=== PATIENT | female | born 1975 | race Caucasian/White ===

== ENCOUNTER 2018-03-07 16:00 | Emergency (ER) | payer BC, SELFPAY ==
[2018-03-07 16:43] VITALS: BP 117/70; PULSE 73; RESP 16; TEMP 37; O2SAT 96
--- NOTE | 2018-03-07 16:55 | W.ED.GENAD ---
Discharge Plan Disposition Patient Disposition: HOME Condition: Fair Discharge Details Chief Complaint: Abd Prob Clinical Impression: Abdominal pain Primary Care Provider: Lonnie Vanegas ED Provider: Cynthia Espinal Home Meds and New Rx's Prescriptions: Continued CENTRUM TABLET 1 EACH tablet 1 tab PO DAILY RF: 0 Probiotic 1 EACH capsule 1 ea PO DAILY RF: 0 Discharge Instructions Instructions: Abdominal Pain (ED) Additional Instructions: Encourage hydration. Tylenol and/or ibuprofen as needed for discomfort. Please follow-up with primary care for reevaluation of your recurrent abdominal pain. We have placed an order for an outpatient ultrasound for further evaluation of your gallbladder, please follow-up with primary care after imaging has been completed. If you develop vomiting, inability to stay hydrated, increased pain, fevers or chills or other new/worsening symptoms please seek care urgently once again Referrals: Lonnie Vanegas [Primary Care Provider] - Medical Decision Making Patient 43-year-old female presenting today with chief complaint of right-sided abdominal pain. She reports the pain began yesterday and has progressively been increasing. States that initially, the pain was in the right lower quadrant but has since migrated more superiorly today. Patient reports the pain does remain quite focal. She denies any fevers or chills. Denies any nausea or vomiting but does endorse a low appetite over the past 24 hours. Denies any change in urinary or bowel habits. Denies any pain radiating into her back. Denies any chest pain or shortness of breath. Denies any recent illness. Is not taking anything as of yet for her discomfort. Surgical history significant for 2 C-sections. Patient does have history of PCO S. She was initially concerned that she may have had ovarian cyst but states the pain is atypical from a previous cyst. Last finished most recent menses 4 days ago. Has had pain previously, was last seen for this 1 year. Has not noted any change in her discomfort associated with p.o. intake On exam, patient patient's pain is maximal in the right upper quadrant with positive Morales sign. No pain over McBurney's point. No CVA tenderness. No rebound tenderness, guarding or peritoneal findings. Patient appears nontoxic and is moving well. Vital signs within normal limit. We will obtain laboratory evaluation and CT scan. While the pain is located in the area most consistent with gallbladder, muscle concern for appendicitis given the location of the initial discomfort in her low appetite. Her lack of change in appetite associated p.o. intake also makes cholecystitis less likely COMPARISON: CT ABD PELVIS WITH CONTRAST 12/23/2016 6:24 PM FINDINGS: Lower thorax: No acute findings. ABDOMEN: Liver: Normal. No mass. Gallbladder and bile ducts: Normal. No calcified stones. No ductal dilation. Pancreas: Normal. No ductal dilation. Spleen: Normal. No splenomegaly. Adrenals: Normal. No mass. Kidneys and ureters: Normal. No hydronephrosis. Stomach and bowel: Normal. No obstruction. No mucosal thickening. Appendix: Normal appendix. PELVIS: Bladder: Unremarkable as visualized. Reproductive: Unremarkable as visualized. ABDOMEN and PELVIS: Intraperitoneal space: Normal. No free air. No significant fluid collection. Bones/joints: No acute fracture. No dislocation. Soft tissues: Unremarkable. Vasculature: Normal. No abdominal aortic aneurysm. Lymph nodes: Normal. No enlarged lymph nodes. IMPRESSION: No acute findings. Labs without acute abnormality. Discussed findings with the patient. Advised that no acute pathology is identified at this time. As pain is in the RUQ, will also order outpatient US for further eval of the GB. Encouraged hdyration. Advised close f/u with PCP. She is declining pain medication at this time. Discussed new/worseing symptoms and when to seek care urgently once again. All of her questions and concerns were addressed, she is in agreementi with this plan. HPI General Mode of arrival: ambulatory. Date/Time Provider Initiated Documentation: 03/07/18 16:54. Limitations to Documentation: no limitations. Information obtained by: patient. History of Present Illness 43 year old F presents to the emergency department with the chief complaint of abdominal pain, described as moderate, with intensity rated at 7. Quality is described as aching, and is localized to the abdomen. Patient reports no radiation. Patient started experiencing this day(s) (1) and it has been constant. No relieving factors improve symptom(s), No exacerbating factors reported . Patient notes loss of appetite; denies chest pain, cough, fever/chills, nausea/vomiting, rash and shortness of breath. Patient did receive the following treatments prior to arrival, none Related Data Home Medications Medication Instructions Recorded Confirmed Centrum Tablet 1 tab PO DAILY 05/30/12 03/07/18 Probiotic 1 ea PO DAILY 08/21/13 03/07/18 Allergies Allergy/AdvReac Type Severity Reaction Status Date / Time No Known Drug Allergies Allergy Unverified 03/07/18 16:46 General Stated Complaint: Abd Prob AGNES: 3 Review of Systems Constitutional Reports as per HPI, Denies chills, Denies fatigue, Denies fever(s) and Denies headache(s) ENT Denies headache(s) Cardiovascular Reports as per HPI, Denies chest pain and Denies dyspnea Respiratory Reports as per HPI, Denies cough and Denies dyspnea Gastrointestinal Reports as per HPI, Reports abdominal pain, Denies melena, Denies change in stool character, Denies nausea and Denies vomiting Genitourinary Denies system reviewed and no additional complaints, except as docu (denies change in urinary habits) Musculoskeletal Reports as per HPI and Denies back pain Integumentary/Breasts Reports as per HPI and Denies rash Neurologic Denies headache(s) Endocrine Denies fatigue [facility] Medical History PCOS (polycystic ovarian syndrome) Surgical History Arthroplasty of knee Biopsy of breast section Family History Sister Polycystic ovaries Mother Hypertensive disorder, systemic arterial Diabetes Hyperlipidemia Father Diabetes Social History Smoking/Tobacco Use Status: Never Exam Const General: cooperative, healthy appearing, comfortable, no acute distress and well developed Nutritional Appearance: average body habitus and well nourished Orientation: alert and awake HENMT Head: normal to inspection Mouth: moist mucous membranes Resp Effort & Inspection: normal respiratory effort, able to speak in complete sentences and no respiratory distress Auscultation: clear to auscultation bilaterally, no rales, no rhonchi and no wheezes Cardio Rate: regular rate Rhythm: regular rhythm Heart Sounds: S1 normal and S2 normal GI Inspection: normal to inspection, non-distended and no large pannus Palpation: soft, no hepatosplenomegaly, not firm, no guarding and tender in the RUQ and Morales's sign positive; not at McBurney's point, obturator sign negative, psoas sign negative and with no rebound tenderness Percussion: normal to percussion Auscultation: normal bowel sounds Back/Spine/Pelvis Back: no CVA tenderness Skin General skin exam: no rashes or lesions noted Trauma: no lacerations or abrasions Neuro General: alert and awake Cognition: normal cognition Speech: speech normal Gait: normal gait Psych Appearance: grossly normal and well kempt Mental Status: mental status grossly normal Speech and Movement: speech and movement normal Course Vital Signs Temperature 37 C 03/07/18 16:43 Pulse 73 03/07/18 16:43 Respiratory Rate 16 03/07/18 16:43 Blood Pressure 117/70 03/07/18 16:43 Pulse Oximetry 96 03/07/18 16:43 Temperature 37 C 03/07/18 16:43 Temperature Source Skin 03/07/18 16:43 Pulse 73 03/07/18 16:43 Respiratory Rate 16 03/07/18 16:43 Respiratory Effort Non-Labored 03/07/18 16:43 Blood Pressure 117/70 03/07/18 16:43 Blood Pressure Position Sitting 03/07/18 16:43 Pulse Oximetry 96 03/07/18 16:43 Oxygen Delivery Method Room Air 03/07/18 16:43 Oxygen Flow Rate 0 03/07/18 16:43 Pain Level 7 03/07/18 16:43
--- NOTE | 2018-03-07 17:30 | DI.CT_ITS ---
SYMPTOM/DIAGNOSIS: RLQ PAIN ABDOMEN AND PELVIC CT: CT scan of the abdomen and pelvis was performed following the uneventful administration of intravenous contrast material. Comparison examination is 12/23/16. No acute findings are seen in the lung bases. The liver is normal in size. No suspicious hepatic masses are seen. The portal and superior mesenteric veins are patent. The gallbladder is negative. No biliary ductal dilatation is identified. The pancreas, spleen and adrenal glands are unremarkable. The kidneys show normal and symmetric enhancement. No evidence of a solid renal mass or obstruction. The urinary bladder is intact. The reproductive organs are grossly unremarkable. The abdominal aorta is of normal caliber. No aneurysmal dilatation is seen. No significant abdominal or pelvic adenopathy, ascites or pneumoperitoneum is present. The bowel shows no evidence of obstruction or inflammation. No findings to suggest an acute appendicitis are present. A normal appendix is seen in the right lower quadrant. Mild degenerative changes are seen in the lower thoracic spine. IMPRESSION: No evidence of an acute abdomen.
--- NOTE | 2018-03-07 17:34 | ED.GENADUL_ITS ---
Discharge Plan Disposition Patient Disposition: HOME Condition: Fair Discharge Details Chief Complaint: Abd Prob Clinical Impression: Abdominal pain Primary Care Provider: Lonnie Vanegas ED Provider: Cynthia Espinal Home Meds and New Rx's Prescriptions: Continued CENTRUM TABLET 1 EACH tablet 1 tab PO DAILY RF: 0 Probiotic 1 EACH capsule 1 ea PO DAILY RF: 0 Discharge Instructions Instructions: Abdominal Pain (ED) Additional Instructions: Encourage hydration. Tylenol and/or ibuprofen as needed for discomfort. Please follow-up with primary care for reevaluation of your recurrent abdominal pain. We have placed an order for an outpatient ultrasound for further evaluation of your gallbladder, please follow-up with primary care after imaging has been completed. If you develop vomiting, inability to stay hydrated, increased pain, fevers or chills or other new/worsening symptoms please seek care urgently once again Referrals: Lonnie Vanegas [Primary Care Provider] - Medical Decision Making Patient 43-year-old female presenting today with chief complaint of right-sided abdominal pain. She reports the pain began yesterday and has progressively been increasing. States that initially, the pain was in the right lower quadrant but has since migrated more superiorly today. Patient reports the pain does remain quite focal. She denies any fevers or chills. Denies any nausea or vomiting but does endorse a low appetite over the past 24 hours. Denies any change in ur inary or bowel habits. Denies any pain radiating into her back. Denies any chest pain or shortness of breath. Denies any recent illness. Is not taking anything as of yet for her discomfort. Surgical history significant for 2 C- sections. Patient does have history of PCO S. She was initially concerned that she may have had ovarian cyst but states the pain is atypical from a previous cyst. Last finished most recent menses 4 days ago. Has had pain previously, was last seen for this 1 year. Has not noted any change in her discomfort associated with p.o. intake On exam, patient patient's pain is maximal in the right upper quadrant with positive Morales sign. No pain over McBurney's point. No CVA tenderness. No rebound tenderness, guarding or peritoneal findings. Patient appears nontoxic and is moving well. Vital signs within normal limit. We will obtain laboratory evaluation and CT scan. While the pain is located in the area most consistent with gallbladder, muscle concern for appendicitis given the location of the initial discomfort in her low appetite. Her lack of change in appetite associated p.o. intake also makes cholecystitis less likely COMPARISON: CT ABD PELVIS WITH CONTRAST 12/23/2016 6:24 PM FINDINGS: Lower thorax: No acute findings. ABDOMEN: Liver: Normal. No mass. Gallbladder and bile ducts: Normal. No calcified stones. No ductal dilation. Pancreas: Normal. No ductal dilation. Spleen: Normal. No splenomegaly. Adrenals: Normal. No mass. Kidneys and ureters: Normal. No hydronephrosis. Stomach and bowel: Normal. No obstruction. No mucosal thickening. Appendix: Normal appendix. PELVIS: Bladder: Unremarkable as visualized. Reproductive: Unremarkable as visualized. ABDOMEN and PELVIS: Intraperitoneal space: Normal. No free air. No significant fluid collection. Bones/joints: No acute fracture. No dislocation. Soft tissues: Unremarkable. Vasculature: Normal. No abdominal aortic aneurysm. Lymph nodes: Normal. No enlarged lymph nodes. IMPRESSION: No acute findings. Labs without acute abnormality. Discussed findings with the patient. Advised that no acute pathology is identified at this time. As pain is in the RUQ, will also order outpatient US for further eval of the GB. Encouraged hdyration. Advised close f/u with PCP. She is declining pain medication at this time. Discussed new/worseing symptoms and when to seek care urgently once again. All of her questions and concerns were addressed, she is in agreementi with this plan. HPI General Mode of arrival: ambulatory . Date/Time Provider Initiated Documentation: 03/07/18 16:54 . Limitations to Documentation: no limitations . Information obtained by: patient . History of Present Illness 43 year old F presents to the emergency department with the chief complaint of abdominal pain, described as moderate, with intensity rated at 7. Quality is described as aching, and is localized to the abdomen. Patient reports no radiation. Patient started experiencing this day(s) (1) and it has been constant. No relieving factors improve symptom(s), No exacerbating factors reported . Patient notes loss of appetite; denies chest pain, cough, fever/chills, nausea/vomiting, rash and shortness of breath. Patient did receive the following treatments prior to arrival, none Related Data Home Medications Medication Instructions Recorded Confirmed Centrum Tablet 1 tab PO DAILY 05/30/12 03/07/18 Probiotic 1 ea PO DAILY 08/21/13 03/07/18 Allergies Allergy/AdvReac Type Severity Reaction Status Date / Time No Known Drug Allergies Allergy Unverified 03/07/18 16:46 General Stated Complaint: Abd Prob AGNES: 3 Review of Systems Constitutional Reports as per HPI, Denies chills, Denies fatigue, Denies fever(s) and Denies headache(s) ENT Denies headache(s) Cardiovascular Reports as per HPI, Denies chest pain and Denies dyspnea Respiratory Reports as per HPI, Denies cough and Denies dyspnea Gastrointestinal Reports as per HPI, Reports abdominal pain, Denies melena, Denies change in stool character, Denies nausea and Denies vomiting Genitourinary Denies system reviewed and no additional complaints, except as docu (denies change in urinary habits) Musculoskeletal Reports as per HPI and Denies back pain Integumentary/Breasts Reports as per HPI and Denies rash Neurologic Denies headache(s) Endocrine Denies fatigue PFSH Medical History PCOS (polycystic ovarian syndrome) Surgical History Arthroplasty of knee Biopsy of breast section Family History Sister Polycystic ovaries Mother Hypertensive disorder, systemic arterial Diabetes Hyperlipidemia Father Diabetes Social History Smoking/Tobacco Use Status: Never Exam Const General: cooperative, healthy appearing, comfortable, no acute distress and well developed Nutritional Appearance: average body habitus and well nourished Orientation: alert and awake HENMT Head: normal to inspection Mouth: moist mucous membranes Resp Effort & Inspection: normal respiratory effort, able to speak in complete sentences and no respiratory distress Auscultation: clear to auscultation bilaterally, no rales, no rhonchi and no wheezes Cardio Rate: regular rate Rhythm: regular rhythm Heart Sounds: S1 normal and S2 normal GI Inspection: normal to inspection, non-distended and no large pannus Palpation: soft, no hepatosplenomegaly, not firm, no guarding and tender in the RUQ and Morales's sign positive; not at McBurney's point, obturator sign negative, psoas sign negative and with no rebound tenderness Percussion: normal to percussion Auscultation: normal bowel sounds Back/Spine/Pelvis Back: no CVA tenderness Skin General skin exam: no rashes or lesions noted Trauma: no lacerations or abrasions Neuro General: alert and awake Cognition: normal cognition Speech: speech normal Gait: normal gait Psych Appearance: grossly normal and well kempt Mental Status: mental status grossly normal Speech and Movement: speech and movement normal Course Vital Signs Temperature 37 C 03/07/18 16:43 Pulse 73 03/07/18 16:43 Respiratory Rate 16 03/07/18 16:43 Blood Pressure 117/70 03/07/18 16:43 Pulse Oximetry 96 03/07/18 16:43 Temperature 37 C 03/07/18 16:43 Temperature Source Skin 03/07/18 16:43 Pulse 73 03/07/18 16:43 Respiratory Rate 16 03/07/18 16:43 Respiratory Effort Non-Labored 03/07/18 16:43 Blood Pressure 117/70 03/07/18 16:43 Blood Pressure Position Sitting 03/07/18 16:43 Pulse Oximetry 96 03/07/18 16:43 Oxygen Delivery Method Room Air 03/07/18 16:43 Oxygen Flow Rate 0 03/07/18 16:43 Pain Level 7 03/07/18 16:43
[2018-03-07 17:50] LABS: Bilirubin Negative (Negative); Blood Negative (Negative); Clarity Clear; Glucose Negative (Negative); Ketones Negative (Negative); Leukocyte Esterase Negative (Negative); Nitrite Negative (Negative); Urobilinogen 0.2 EU/dL (Up TO 0.2)
[2018-03-07] MEDS: Lactated Ringers 1,000 ML 1000 ML IV (17:55)
[2018-03-07 18:08] LABS: Abs Immature Grans 0.04 k/cumm (0.0-0.09); Absolute Basophil Count 0.04 k/cumm (0.0-0.2); Absolute Eosinophil Count 0.58 k/cumm (0.0-0.7); Absolute Lymphocyte Count 2.81 k/cumm (1.2-3.4); Absolute Monocyte Count 0.83 k/cumm (0.11-0.7); Absolute Neutrophil Count 5.64 k/cumm (1.2-6.7); Basophils % 0.4; Eosinophils % 5.8; HCT 38.7 % (36.0-46.0); HGB 13.1 g/dL (12.0-15.5); Immature Grans % 0.4; Lymphocytes % 28.3; Mean Corp. HGB Concentration 33.9 g/dL (32.0-36.0); Mean Corpuscular Hemoglobin 30.8 pg (27.0-33.0); Mean Corpuscular Volume 91.1 fL (80-95); Mean Platelet Volume 9.2 fL (8.0-11.0); Monocytes % 8.4; Neutrophils % 56.7; Platelet Count 306 x1000/uL (130-400); RBC 4.25 m/cumm (4.00-5.20); RBC Distribution Width 14.5 % (11.7-14.6); White Blood Cell Count 9.94 k/cumm (4.4-10.8)
[2018-03-07] MEDS: Omnipaque 350 MG/ML 100 ML BTL IJ (18:23)
[2018-03-07 18:25] LABS: ALT 26 U/L (12-78); AST 19 U/L (15-37); Albumin 3.4 g/dL (3.4-5.0); Alkaline Phosphatase 56 U/L (46-116); Anion Gap 7.8 mmol/L (3-11); BUN 11 mg/dL (7-18); Bilirubin, Total 0.1 mg/dL (0.2-1.0); CO2 29.2 mmol/L (21.0-32.0); CREATININE 0.89 mg/dL (0.55-1.02); Chloride 104 mmol/L (98-107); Glucose 86 mg/dL (70-100); Lipase 191 U/L (73-393); Potassium 3.9 mmol/L (3.5-5.1); Sodium 141 mmol/L (136-145); Total Protein 7.5 g/dL (6.4-8.2)
[2018-03-07 18:27] LABS: Troponin I < 0.02 ng/mL (0.00-0.06)
--- NOTE | 2018-03-07 18:54 | DI.VRAD_ITS ---
EXAM: CT Abdomen and Pelvis With Contrast EXAM DATE/TIME: 03/07/2018 5:31 PM CLINICAL HISTORY: 43 years old, female; Pain; Abdominal pain; Patient HX: Rlq pain TECHNIQUE: Axial computed tomography images of the abdomen and pelvis with intravenous contrast. Coronal and sagittal reformatted images were created and reviewed. COMPARISON: CT ABD PELVIS WITH CONTRAST 12/23/2016 6:24 PM FINDINGS: Lower thorax: No acute findings. ABDOMEN: Liver: Normal. No mass. Gallbladder and bile ducts: Normal. No calcified stones. No ductal dilation. Pancreas: Normal. No ductal dilation. Spleen: Normal. No splenomegaly. Adrenals: Normal. No mass. Kidneys and ureters: Normal. No hydronephrosis. Stomach and bowel: Normal. No obstruction. No mucosal thickening. Appendix: Normal appendix. PELVIS: Bladder: Unremarkable as visualized. Reproductive: Unremarkable as visualized. ABDOMEN and PELVIS: Intraperitoneal space: Normal. No free air. No significant fluid collection. Bones/joints: No acute fracture. No dislocation. Soft tissues: Unremarkable. Vasculature: Normal. No abdominal aortic aneurysm. Lymph nodes: Normal. No enlarged lymph nodes. IMPRESSION: No acute findings. Dictated and Authenticated by: Rhett Guidry MD. Ordering:STACI Marie MD
[2018-03-07 20:17] VITALS: BP 117/70; PULSE 73; RESP 16; TEMP 37; O2SAT 96
== END 2018-03-07 19:30 | disposition home or self-care (01) ==
PROVIDERS: Emergency Provider Physician Assistant; PCP Family Medicine
DX: R10.11 Right upper quadrant pain (principal)
CPT/HCPCS: 36415; 80053; 81025; 83690; 96361; 99285; 74177; 81003; 83735; 84484; 85025; 99284; J3490

== ENCOUNTER 2018-03-18 00:20 | Outpatient (CLI) | payer BC, SELFPAY ==
--- NOTE | 2018-03-18 10:00 | DI.US_ITS ---
SYMPTOM/DIAGNOSIS: RUQ PAIN ABDOMEN ULTRASOUND: Routine examination was performed. Comparison is made with 12/23/16. Comparison CT scan is 03/07/18. The aorta and IVC are unremarkable. The liver, gallbladder, bile ducts, pancreas, kidneys and spleen are unremarkable. The right lower quadrant was evaluated sonographically and is unremarkable. IMPRESSION: Negative abdomen ultrasound.
== END 2018-03-18 00:40 ==
PROVIDERS: PCP Family Medicine; Visit Provider Physician Assistant
DX: R10.11 Right upper quadrant pain (principal)
CPT/HCPCS: 76700

== ENCOUNTER 2018-04-07 00:40 | Outpatient (CLI) | payer BC, SELFPAY ==
--- NOTE | 2018-04-07 08:24 | DI.NM_ITS ---
SYMPTOMS/DIAGNOSIS: RECURRENT RIGHT UPPER QUADRANT PAIN X 4 WEEKS, NEGATIVE CT/US HEPATOBILIARY SCAN: Hepatobiliary scan was performed according to the usual protocol. 4.7 mCi of technetium 99 labelled mebrofenin was injected intravenously. There is a prompt homogeneous hepatic uptake and there is prompt uptake in the gallbladder, bile ducts and small intestine. CONCLUSION: Negative hepatobiliary scan.
== END 2018-04-07 01:00 ==
PROVIDERS: PCP Family Medicine; Visit Provider Family Medicine
DX: R10.11 Right upper quadrant pain (principal)
CPT/HCPCS: 78227

== ENCOUNTER 2018-10-20 02:17 | Outpatient (CLI) | payer BC, SELFPAY ==
[2018-10-20 07:37] LABS: Hemoglobin A1C 5.2 % (4.5-6.2)
[2018-10-20 08:16] LABS: ALT 27 U/L (12-78); Calculated LDL 87 mg/dL; Cholesterol 166 mg/dL (50-200); Glucose 84 mg/dL (70-100); HDL Cholesterol 63 mg/dL (40-60); Triglyceride 83 mg/dL (30-150)
== END 2018-10-20 02:37 ==
PROVIDERS: PCP Family Medicine; Visit Provider Family Medicine
DX: Z82.49 Family history of ischemic heart disease and other diseases of the circulatory system (principal); Z83.3 Family history of diabetes mellitus
CPT/HCPCS: 36415; 80061; 82947; 83721; 83036; 84460

== ENCOUNTER 2018-10-23 12:02 | Emergency (ER) | payer BC, SELFPAY ==
[2018-10-23 12:07] VITALS: BP 119/69; PULSE 76; RESP 18; TEMP 37; O2SAT 97
--- NOTE | 2018-10-23 12:18 | DI.RAD_ITS ---
SYMPTOM/DIAGNOSIS: COUGH, WHEEZE PA AND LATERAL CHEST: Comparison is made with 16 May 2015. The cardiac and mediastinal contours have a normal appearance. The lungs are well inflated and clear. No infiltrate or effusion is seen. IMPRESSION: Negative chest x-ray.
[2018-10-23] MEDS: Albuterol 2.5 MG/3 ML INH SOLN VIAL UPD (12:20)
--- NOTE | 2018-10-23 12:31 | W.ED.GENAD ---
Discharge Plan Disposition Patient Disposition: HOME Discharge Details Chief Complaint: RespSymp Clinical Impression: Sinusitis, Bronchitis, Reactive airway disease Primary Care Provider: Lonnie Vanegas ED Provider: Dennys Fishman Home Meds and New Rx's Prescriptions: New doxycycline hyclate 100 mg tablet 100 mg PO BID Qty: 19 RF: 0 albuterol sulfate 90 mcg/actuation HFA aerosol inhaler 1 inh IH Q4H PRN (Reason: shortness of breath or wheezing) Qty: 8.5 RF: 0 Continued CENTRUM TABLET 1 EACH tablet 1 tab PO DAILY RF: 0 Probiotic 1 EACH capsule 1 ea PO DAILY RF: 0 Discontinued fluticasone propionate [Allergy Relief (fluticasone)] 50 mcg/actuation spray,suspension 2 spray ELO DAILY Qty: 47.4 RF: 3 Discharge Instructions Instructions: Sinusitis (ED), Acute Bronchitis (ED), Reactive Airways Disease (ED) Additional Instructions: Please use albuterol inhaler - 2 puffs every 4 hours as needed for wheezing. If you are requiring inhaler more frequently, return to the emergency department. Take full course of antibiotic as prescribed. Please contact your primary care physician to arrange follow-up. Return to the ER for any worsening or new concerning symptoms. Referrals: Lonnie Vanegas [Primary Care Provider] - Discharge Data Discharge Date/Time-TO BE ENTERED AT DEPARTURE: 10/23/18 13:35 Medical Decision Making 12:35 --43-year-old female here with maxillary sinus congestion and intermittently productive cough over the past 1 week, worsening and now with wheeze. Suspect bronchitis versus pneumonia with associated reactive airway disease. Patient has no known history of asthma. Will treat with albuterol neb and reassess. Plan to obtain chest x-ray. -- cxr interpreted by radiology: No acute findings. --Patient reassessed and has had significant improvement in wheezing. Feels much better. Still with subtle wheeze. Will give aluterol inh with spacer. Plan to initiate treatment with doxycycline for sinusitis and bronchitis. Advised continue albuterol inh. Follow-up pcp. Disposition decision was made weighing the risks and benefits of hospitalization versus outpatient treatment, the risk for further decompensation, and the patient's wishes. The patient was stable and requested discharge. Prior to discharge, my usual and customary return precautions were reviewed with the patient - this included follow-up instructions and reason to return to the emergency department if condition worsens, does not improve as expected, or other new concerns arise. HPI General Mode of arrival: ambulatory. Date/Time Provider Initiated Documentation: 10/23/18 12:07. Limitations to Documentation: no limitations. Information obtained by: patient. HPI Narrative: 43-year-old female presents with chief complaint of cough. Patient notes respiratory illness over the past 1 week. She initially had sinus congestion. Congestion has persisted and she has yellow-orange sinus discharge. Sinus pressure right maxillary sinus. Cough has increased over the past week. Patient notes associated wheeze and some shortness of breath. Cough is moderate to severe. She had difficulty sleeping last night. Cough is intermittently productive of yellow sputum. No known sick contacts. She did recently travel to [place]. She has had subjective fevers. Patient saw PCP for annual visit earlier this week and symptoms were attributed to seasonal allergies. Symptoms have worsened since this visit. Related Data Home Medications Medication Instructions Recorded Confirmed Centrum Tablet 1 tab PO DAILY 05/30/12 10/28/18 Probiotic 1 ea PO DAILY 08/21/13 10/28/18 albuterol sulfate 1 inh IH Q4H PRN #8.5 gm 10/23/18 10/28/18 doxycycline hyclate 100 mg PO BID #19 tab 10/23/18 10/28/18 Previous Rx's Medication Instructions Recorded albuterol sulfate 1 inh IH Q4H PRN #8.5 gm 10/23/18 doxycycline hyclate 100 mg PO BID #19 tab 10/23/18 Allergies Allergy/AdvReac Type Severity Reaction Status Date / Time No Known Drug Allergies Allergy Verified 10/28/18 15:49 General Stated Complaint: RespSymp AGNES: 3 Review of Systems Review of Systems All systems reviewed & are unremarkable except as noted in HPI and below Constitutional Reports fever(s) Comments: Generally does not feel well ENT Reports as per HPI Cardiovascular Reports dyspnea Respiratory Reports cough, Reports dyspnea and Reports wheezing Allergic/Immunologic Reports wheezing PFSH Medical History Allergic rhinitis (Acute) Family history of diabetes mellitus in first degree relative (Acute) Family history of myocardial infarction (Acute) History of gestational diabetes (Acute) PCOS (polycystic ovarian syndrome) Surgical History Arthroplasty of knee Biopsy of breast section Family History Sister Polycystic ovaries Hypertension Mother Hypertensive disorder, systemic arterial Diabetes Hyperlipidemia Stroke Father Diabetes Hyperlipidemia Hypertension Brother No problems noted. Sister No problems noted. Maternal Grandfather Alcohol abuse Paternal Grandfather Diabetes Maternal Grandmother Heart disease Hyperlipidemia Paternal Grandmother No problems noted. Son No problems noted. Daughter No problems noted. Social History (Updated 10/28/18 @ 22:25 by Toni De Jesus) Smoking/Tobacco Use Status: Never Alcohol Intake: current Alcohol Intake frequency: a few times a week Alcohol type: hard liquor Drug use: Socially Substance use type: marijuana Caregiver/Support person: No Household members: spouse and children Housing: house Communication Needs: None Do you need help understanding health information?: Never Pets and animals: No Sexually active: Yes Do you think of yourself as: straight/heterosexual Current gender identity: female What is your relationship status?: How often do you talk on the phone with friends or family?: three or more times per week How often do you get together with friends or relatives?: twice per week How often do you attend jew or latter day services?: decline to answer Do you belong to any clubs or organized social groups?: yes Panel score (0-1 are the most socially isolated patients): 3 What type of physical activity do you participate in: other Duration: < 15 minutes/day Frequency: 1-2 times per week Dennise/Yazidism: None Special dennise needs: No Seatbelt use: always Helmet use: Yes Helmet use: always Drive intox or ride w/intox emergency medical technician/driver: No Do you feel safe at home: Yes Do you feel safe in your relationship?: Yes History History 2 Para Hx # Term Pregnancies 2 Multiple births Hx # Pregnancies Ectopic pregnancies AB induced Hx Number of Living Children 2 AB spontaneous Exam Const General: cooperative and no acute distress HENMT Head: normocephalic and atraumatic General nose exam: external nose normal Face and sinus: sinus tenderness maxillary (rt) Mouth: moist mucous membranes Throat: posterior oropharynx normal Eyes Conjunctivae: normal conjunctivae Sclera: normal sclerae Neck Neck: trachea midline and supple Resp Effort & Inspection: able to speak in complete sentences and no respiratory distress Auscultation: no rales, rhonchi and wheezes expiratory wheezes Cardio Jugular venous pressure: no JVD Rate: regular rate and not tachycardic Rhythm: regular rhythm GI Palpation: soft, not firm, no guarding, no masses, not rigid and nontender Skin General skin exam: no rashes or lesions noted Neuro General: alert, awake, oriented x3 and tone normal Extrem General: no calf tenderness and no edema Psych Appearance: grossly normal Mental Status: mental status grossly normal Course Vital Signs Temperature 37 C 10/23/18 12:07 Pulse 76 10/23/18 12:07 Respiratory Rate 18 10/23/18 12:07 Blood Pressure 119/69 10/23/18 12:07 Pulse Oximetry 97 10/23/18 12:07 Temperature 37 C 10/23/18 12:07 Temperature Source Temporal Artery Scan 10/23/18 12:07 Pulse 76 10/23/18 12:07 Respiratory Rate 18 10/23/18 12:07 Respiratory Effort 10/23/18 12:11 Respiratory Depth Normal 10/23/18 12:11 Blood Pressure 119/69 10/23/18 12:07 Blood Pressure Position Sitting 10/23/18 12:07 Pulse Oximetry 97 10/23/18 12:07 Oxygen Delivery Method Room Air 10/23/18 12:07 Oxygen Flow Rate 0 10/23/18 12:07 Pain Level 0 10/23/18 12:07
[2018-10-23 12:50] VITALS: RESP 4; RESP 5
--- NOTE | 2018-10-23 13:00 | DI.VRAD_ITS ---
EXAM: XR Chest, 2 Views EXAM DATE/TIME: 10/23/2018 12:20 PM CLINICAL HISTORY: 43 years old, female; Other: Cough, wheeze TECHNIQUE: Imaging protocol: XR of the chest, 2 views. COMPARISON: CR CHEST 2 VIEWS PA,LAT 05/16/2015 9:14 PM FINDINGS: Lungs: Lungs are clear. Pleural space: Unremarkable. No pleural effusion. No pneumothorax. Heart/Mediastinum: Cardiac silhouette is normal in size Bones/joints: Appear intact. IMPRESSION: No acute findings. Dictated and Authenticated by: Pedro Salgado MD. Ordering:MARINO Noyola MD
[2018-10-23] MEDS: Inhaler, Assist Device 1 EACH MC (13:15)
[2018-10-23] MEDS: Albuterol HFA 8 GM 60 PUFF INH IH (13:15)
[2018-10-23] MEDS: Doxycycline Hyclate 100 MG CAP PO (13:21)
[2018-10-23 13:35] VITALS: BP 114/79; PULSE 85; RESP 16; TEMP 37; O2SAT 97
== END 2018-10-23 13:35 | disposition home or self-care (01) ==
PROVIDERS: Emergency Provider Student in an Organized Health Care Education/Training Program; PCP Family Medicine
DX: J01.00 Acute maxillary sinusitis, unspecified (principal); J44.0 Chronic obstructive pulmonary disease with (acute) lower respiratory infection; J20.9 Acute bronchitis, unspecified; J45.909 Unspecified asthma, uncomplicated
CPT/HCPCS: 94640; 99283; 71046; 99284; J7613

== ENCOUNTER 2018-10-28 15:41 | Inpatient (IN) | payer BC, SELFPAY ==
[2018-10-28] VITALS (12 sets, daily range): BP systolic 94–148; BP diastolic 67–114; PULSE 80–115; RESP 16–20; TEMP 36.7–37; O2SAT 76–98
--- NOTE | 2018-10-28 16:09 | DI.CT_ITS ---
SYMPTOM/DIAGNOSIS: COUGH X 2 WEEKS, HEMOPTYSIS CHEST CT FOR PULMONARY EMBOLISM: CT angiography was performed with multi slice acquisition and multi planar and 3D reconstruction. Comparison is made with CT of the abdomen and pelvis dated 07 March 2018 as well as 23 Dec 2016. There is no evidence of pulmonary emboli or aortic dissection. The heart size is normal. No pleural or pericardial effusions or infiltrates are seen. There is no evidence of mass or adenopathy. There is scarring at both lung apices. There is a nodular area seen peripherally in the left lower lobe which appears unchanged when compared with the 2017 CT abdomen and pelvis, and may represent a nodular area of scarring. No bronchiectasis or bronchial wall thickening is seen. The visualized portions of the upper abdominal organs are unremarkable. No bony abnormalities are seen. IMPRESSION: No evidence of pulmonary emboli or other acute abnormality. There is bi-apical scarring and a small focus of scarring in the lateral left lower lobe.
--- NOTE | 2018-10-28 16:11 | ED.GENADUL_ITS ---
Discharge Plan Disposition Patient Disposition: [facility] INPATIENT Condition: Good Discharge Details Chief Complaint: RespSymp Clinical Impression: Community acquired pneumonia, Cough, Wheeze Primary Care Provider: Lonnie Vanegas ED Provider: Kishan Soliman Home Meds and New Rx's Prescriptions: No Action CENTRUM TABLET 1 EACH tablet 1 tab PO DAILY RF: 0 Probiotic 1 EACH capsule 1 ea PO DAILY RF: 0 doxycycline hyclate 100 mg tablet 100 mg PO BID Qty: 19 RF: 0 albuterol sulfate 90 mcg/actuation HFA aerosol inhaler 1 inh IH Q4H PRN (Reason: shortness of breath or wheezing) Qty: 8.5 RF: 0 Medical Decision Making This is a 43-year-old female with no significant past medical history including no history of asthma or tobacco abuse in the past who presents today for evaluation of cough. Patient developed a cough 2 weeks ago, she was seen and assessed 5 days ago, treated with doxycycline and albuterol secondary to notable wheezes. Chest x-ray was negative at that time, suspected bronchitis. For the last 5 days she has been using her albuterol and doxycycline as directed but has been having worsening of her symptoms, she is now having hemoptysis in conjunction with continued cough. Symptoms have worsened and not improved. Phy sical exam demonstrates notable wheezes throughout, persistent and unremitting coughing. The remainder of exam is otherwise benign. She is tachycardic but not hypoxic. She also states that one point she did feel some rice crispies in her neck after coughing however she demonstrates no evidence of that now. Differential includes continued bronchitis versus pneumonia. PE is also in the differential with multiple long trips, family history of blood clots, and hemoptysis. We will give breathing treatments, steroids, fluids, order CTA for PE eval, evaluate for atypical ACS etiology and reassess. Of note the patient is not on lisinopril, shows no signs of angioedema. Signs and symptoms are inconsistent with MARGO/ARB related cough. 6:50 PM Laboratory work-up is returned relatively benign, patient does have an elevated white count, no left shift, platelets normal, electrolytes renal function INR lactate troponin normal. EKG is unremarkable. CT scan shows infiltrate versus scarring at the pulmonary apices, as well as scattered nodules in those areas as well. No evidence of subcutaneous gas, no large infiltrate, no pulmonary embolism. CT scan is actually fairly unremarkable in comparison to the patient's clinical symptoms. The apical components, I did go back and discussed with the patient any history of tuberculosis or family history or exposure. She does admit that a family member of 1 of her friends whom she visited 3 weeks ago was being treated for TB, she denies any exposure to that person. She has been to [place] in [place] recently, but denies any travel to the [facility], or other foreign or international travel. Patient's wheezes are improved but not resolved with breathing treatments here. Ambulatory pulse ox demonstrates normal oxygen saturation however the patient's heart rate continues to remain elevated, currently she is at a baseline of 100-1 05, and when she ambulates she goes up to 120. With the patient's notable and pronounced and somewhat persistent cough, conjunction with her failure of resolution of symptoms with outpatient therapy, in conjunction with her apical infiltrate versus scarring in the apices and lesions, I do feel that she would benefit from inpatient admission. Clinically the patient looks much worse than she does on paper. I will send for sputum cultures, as well as Gold QuantiFERON testing for TB. We will start Rocephin and doxycycline for continued community-acquired pneumonia. We did contact the nursing supervisor of officials and will get a negative pressure room for her. I did contact the hospitalist , he agrees with the assessment and plan. I will place admission orders. I have extensively reviewed the treatment plan with the patient. I have addressed all patient concerns at this time. I have also discussed the plan with the admitting physician and they agree with the current assessment and plan and have agreed to assume responsibility for the patient. All parties demonstrate verbal understanding and agreement with our assessment and plan at this time. EKG 16: 43 Rate 86, intervals normal, sinus rhythm, no significant ST elevations or depressions, single T wave inversion in V1. No significant Q waves. FINDINGS: Pulmonary arteries: Normal. No pulmonary emboli. Aorta: Unremarkable. No aortic aneurysm. No aortic dissection. Lungs: Infiltrate versus scarring at the pulmonary apices. 1 cm nodule in the left apex (4/10). 1.4 cm nodule in the left apex (4/8). 1 cm nodule in the lateral segment of the left lower lobe (4/57). Scattered pleural tags in the left upper lobe. Pleural space: See Lungs Finding. Heart: Unremarkable. No cardiomegaly. No pericardial effusion. Lymph nodes: Unremarkable. No enlarged lymph nodes. Bones/joints: Unremarkable. No acute fracture. Soft tissues: Unremarkable. IMPRESSION: 1. No pulmonary embolism. 2. Infiltrate versus scarring the pulmonary apices. 3. Pulmonary nodules.For patients at low risk (minimal or absent history of smoking and of other known risk factors), recommend CT at 3-6 months, then consider CT at 18-24 months. For patients at high risk (history of smoking or of other known risk factors), recommend CT at 3-6 months, then CT at 18-24 months. (Jimena et al., Fleischner Society, 2017) Dictated and Authenticated by: Herman Macdonald MD. Ordering:ALEX Holley MD [facility] General Date/Time Provider Initiated Documentation: 10/28/18 15:55 . HPI Narrative: This is a pleasant 43-year-old female with no significant past medical history who presents today for cough for the last 2 weeks. 5 days prior to today's visit the patient had her cough, minimally productive, with no hemoptysis. She was treated for bronchitis with doxycycline and a breathing treatment, as well as an inhaler to go home with. In spite of this and being medically compliant at home she has had continued and worsening of her symptoms over the last 5 days. She has been noticing persistent worsening cough, severe fatigue, as well as notable scant hemoptysis. She admits to pain in her chest with coughing. She denies any recent flights, or surgeries, but has had multiple trips to [place] and other surrounding cities during the summer. She does admit to a family history of pulmonary emboli. She has been taking her doxycycline as directed at home, she is also been using her albuterol at home. The albuterol does help her symptoms she notes. She does admit to continued fatigue, and her symptoms are notably worse at night when she lies down. Her coughing significantly exacerbates then and in the morning. Patient denies any other complaints at this time. No other modifying factors. Related Data Home Medications Medication Instructions Recorded Confirmed Centrum Tablet 1 tab PO DAILY 05/30/12 10/28/18 Probiotic 1 ea PO DAILY 08/21/13 10/28/18 albuterol sulfate 1 inh IH Q4H PRN #8.5 gm 10/23/18 10/28/18 doxycycline hyclate 100 mg PO BID #19 tab 10/23/18 10/28/18 Previous Rx's Medication Instructions Recorded albuterol sulfate 1 inh IH Q4H PRN #8.5 gm 10/23/18 doxycycline hyclate 100 mg PO BID #19 tab 10/23/18 Allergies Allergy/AdvReac Type Severity Reaction Status Date / Time No Known Drug Allergies Allergy Verified 10/28/18 15:49 General Stated Complaint: RespSymp AGNES: 3 Review of Systems Review of Systems All systems reviewed & are unremarkable except as noted in HPI and below PFSH Social History Smoking/Tobacco Use Status: Never Alcohol Intake: current Alcohol Intake frequency: a few times a week Alcohol type: hard liquor Drug use: Never Substance use type: does not use Caregiver/Support person: No Household members: spouse and children Housing: house Communication Needs: None Do you need help understanding health information?: Never Pets and animals: No Sexually active: Yes Do you think of yourself as: straight/heterosexual Current gender identity: female What is your relationship status?: How often do you talk on the phone with friends or family?: three or more times per week How often do you get together with friends or relatives?: twice per week How often do you attend anabaptism or congregation services?: decline to answer Do you belong to any clubs or organized social groups?: yes Panel score (0-1 are the most socially isolated patients): 3 What type of physical activity do you participate in: other Duration: < 15 minutes/day Frequency: 1-2 times per week Dennise/Quaker: None Special dennise needs: No Seatbelt use: always Helmet use: Yes Helmet use: always Drive intox or ride w/intox dray driver: No Do you feel safe at home: Yes Do you feel safe in your relationship?: Yes Exam Narrative Exam Narrative: 1.Const: Well-nourished, Well-developed, appearing stated age 2.Eyes: PERRL, no conjunctival injection, and symmetrical lids. 3.ENT: Atraumatic external nose and ears. Moist MM. Neck: Symmetric, trachea midline, No thyromegaly. No subcutaneous crepitus in the neck. No Tracie's crunch. 4.CVS: +S1/S2, No murmurs or gallops. Peripheral pulses 2+ and equal in all extremities. Brisk capillary refill in all extremities. 5.RESP: Unlabored respiratory effort. Notable wheezes throughout, mild scattered crackles. Notable persistent cough 6.GI: Soft, Nontender/Nondistended, No hepatosplenomegaly. No guarding or rebound. 7.MSK: Normocephalic/Atraumatic, Extremities w/o deformity or ttp No cyanosis or clubbing, Normal movement of all extremities 8.Skin: Warm, Dry. No rashes or lesions. 9.Neuro: director surgical II-XII grossly intact. Sensation grossly intact, no focal neurologic deficits. 10.Psych: (AAO) x3. Appropriate mood and affect Course Vital Signs Temperature 36.7 C 10/28/18 15:44 Pulse 90 10/28/18 15:44 Respiratory Rate 16 10/28/18 15:44 Blood Pressure 146/81 H 10/28/18 15:44 Pulse Oximetry 95 10/28/18 15:44 Temperature 36.7 C 10/28/18 15:44 Temperature Source Skin 10/28/18 15:44 Pulse 90 10/28/18 15:44 Respiratory Rate 16 10/28/18 15:44 Blood Pressure 146/81 H 10/28/18 15:44 Blood Pressure Position Sitting 10/28/18 15:44 Pulse Oximetry 95 10/28/18 15:44 Oxygen Delivery Method Room Air 10/28/18 15:44 Oxygen Flow Rate 0 10/28/18 15:44 Pain Level 5 10/28/18 15:44
[2018-10-28] MEDS: Normal Saline 1,000 ML 1000 ML IV (16:35)
[2018-10-28] MEDS: methylPREDNISolone SUCC 125 MG VIAL IVP (16:35)
[2018-10-28] MEDS: Albuterol/Ipratropium 3 ML UPD VIAL UPD (16:45)
[2018-10-28 16:51] LABS: Lactate 1.3 mmol/L (0.6-1.4)
[2018-10-28 16:55] LABS: Abs Immature Grans 0.06 k/cumm (0.0-0.09); Absolute Basophil Count 0.04 k/cumm (0.0-0.2); Absolute Eosinophil Count 1.86 k/cumm (0.0-0.7); Absolute Lymphocyte Count 3.21 k/cumm (1.2-3.4); Basophils % 0.3; Eosinophils % 13.2; HCT 41.1 % (36.0-46.0); HGB 13.8 g/dL (12.0-15.5); Immature Grans % 0.4; Lymphocytes % 22.8; Mean Corp. HGB Concentration 33.6 g/dL (32.0-36.0); Mean Corpuscular Hemoglobin 30.1 pg (27.0-33.0); Mean Corpuscular Volume 89.7 fL (80-95); Mean Platelet Volume 9.2 fL (8.0-11.0); Monocytes % 7.5; Neutrophils % 55.8; Platelet Count 384 x1000/uL (130-400); RBC 4.58 m/cumm (4.00-5.20); RBC Distribution Width 13.6 % (11.7-14.6); White Blood Cell Count 14.06 k/cumm (4.4-10.8)
[2018-10-28 16:58] LABS: Absolute Monocyte Count 1.05 k/cumm (0.11-0.7); Absolute Neutrophil Count 7.85 k/cumm (1.2-6.7)
[2018-10-28 17:15] LABS: PTT Activated 26.3 sec (21.0-31.4); Prothrombin Time 9.7 sec (9.3-11.0)
[2018-10-28 17:16] LABS: Diff Comment Agrees w/ Instrument; RBC Morphology Normal
[2018-10-28 17:18] LABS: ALT 27 U/L (14-59); AST 19 U/L (15-37); Albumin 3.4 g/dL (3.4-5.0); Alkaline Phosphatase 74 U/L (46-116); Anion Gap 11.8 mmol/L (3-11); BUN 13 mg/dL (7-18); Bilirubin, Total 0.2 mg/dL (0.2-1.0); CO2 24.2 mmol/L (21.0-32.0); CREATININE 0.86 mg/dL (0.55-1.02); Calcium 8.5 mg/dL (8.5-10.1); Chloride 103 mmol/L (98-107); Glucose 86 mg/dL (70-100); NT-proBNP 42 pg/mL; Potassium 3.9 mmol/L (3.5-5.1); Sodium 139 mmol/L (136-145); Total Protein 7.9 g/dL (6.4-8.2)
[2018-10-28 17:20] LABS: Troponin I < 0.05 ng/mL (0.00-0.06)
[2018-10-28] MEDS: Omnipaque 350 MG/ML 100 ML BTL IJ (17:43)
--- NOTE | 2018-10-28 17:57 | DI.VRAD_ITS ---
EXAM: CT Angiography Chest With Contrast EXAM DATE/TIME: 10/28/2018 4:10 PM CLINICAL HISTORY: 43 years old, female; Patient HX: Cough for 2 weeks, hemoptysis TECHNIQUE: Imaging protocol: Computed tomographic angiography of the chest with intravenous contrast. 3D rendering: MIP reconstructed images were created and reviewed. COMPARISON: CR XR CHEST 2V PA LATERAL 10/23/2018 12:42 PM FINDINGS: Pulmonary arteries: Normal. No pulmonary emboli. Aorta: Unremarkable. No aortic aneurysm. No aortic dissection. Lungs: Infiltrate versus scarring at the pulmonary apices. 1 cm nodule in the left apex (4/10). 1.4 cm nodule in the left apex (4/8). 1 cm nodule in the lateral segment of the left lower lobe (4/57). Scattered pleural tags in the left upper lobe. Pleural space: See Lungs Finding. Heart: Unremarkable. No cardiomegaly. No pericardial effusion. Lymph nodes: Unremarkable. No enlarged lymph nodes. Bones/joints: Unremarkable. No acute fracture. Soft tissues: Unremarkable. IMPRESSION: 1. No pulmonary embolism. 2. Infiltrate versus scarring the pulmonary apices. 3. Pulmonary nodules.For patients at low risk (minimal or absent history of smoking and of other known risk factors), recommend CT at 3-6 months, then consider CT at 18-24 months. For patients at high risk (history of smoking or of other known risk factors), recommend CT at 3-6 months, then CT at 18-24 months. (Jimena et al., Fleischner Society, 2017) Dictated and Authenticated by: Herman Macdonald MD. Ordering:ALEX Holley MD
[2018-10-28] MEDS: Albuterol/Ipratropium 3 ML UPD VIAL 6 ML UPD (18:01)
[2018-10-28] MEDS: cefTRIAXone 2 GM/50 ML BAG IVPB (18:50)
[2018-10-28] MEDS: DOXYCYCLINE 100 MG in Normal Saline 100 ML IVPB (19:43)
--- NOTE | 2018-10-28 21:16 | W.PM.HP.N ---
Date of service: 10/28/18 Time of Service: 21:16 Assessment and Plan (1) Acute purulent bronchitis: Current visit: Yes Status: Acute treat w/ cough suppressants, iv corticosteroids, iv antibiotics (Rocephin) and oral doxycycline; attempt to collect sputum cultures and AFB smear/culture and await results of interferon gamma release assay (Quantiferon Gold test) and PPD results. continue w/ negative airflow isolation pending results. Because of her hx of sinus symptoms for a year, I will check ANCA, PARKER, and also check for proteinuria for pulmonary/renal syndromes. Ultimately she may need bronchoscopy to evaluate source of her hemoptysis. (2) Hemoptysis: Current visit: Yes Status: Acute as above. suppress cough w/ antitussives (3) Lung nodules: Current visit: Yes Status: Acute patient will need follow up w/ pulmonology for repeat CT in 3 to 6 months. 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 Patient states she is had an intermittent cough for the last for 5 months since she got over influenza in April. She has had chronic sinus symptoms for the past year. She has had increased sinus congestion since October 13 and saw her primary care provider who prescribed fluticasone nasal spray on October 18, 2018. She went to the emergency room on October 23, 2018 when her cough got worse at that point she had a chest x-ray that showed no acute findings and because she had significant wheezing she was given nebulizer treatment of albuterol which improved her symptoms and she was diagnosed with sinusitis and bronchitis and started on doxycycline and given an albuterol inhaler. Since that time she says her cough is gotten worse and is been associated low-grade fever of 99 to 100 degrees since last Wednesday night associated with a night sweats or Reiger's. She is been coughing up thick stringy mucus with some streaks of blood in. The hemoptysis began yesterday. She has had no ill contacts around her. She lives with her and 2 children who are age 8 and 10 years old all of whom are healthy. The patient is a non-smoker except for occasional use of marijuana. 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 When she was questioned about tuberculosis exposure she did not recall being around anyone with tuberculosis except that 1 of her friends sister is finishing treatment for tuberculosis although the patient's friend herself is not symptomatic of any TB and the patient has not been around her friend's sister. Is far as her high school chemistry work she has not been exposed to any toxic fumes that she is aware of. Work-up in the emergency room included routine labs, EKG, chest CT. Her CTA of her chest showed no pulmonary emboli. She has apical scarring versus infiltrate. She has a one similar nodule in the left apex and a 1.4 cm nodule in the right apex as well as a 1 cm nodule in the left lateral lower lobe segment. Scattered pleural tags in the left upper lobe. She has no enlarged lymph nodes. And no pericardial effusion. I went over these findings with the patient explained that she will need to have follow-up CT scan in 3 to 6 months to follow-up on these nodules. Patient herself denies any weight loss or night sweats. She has had sinus symptoms for a year now with right maxillary sinus pressure and intermittent right ear aching. She seen an ENT physician but has not had any imaging of her sinuses. To her knowledge she has had no liver or kidney problems and denies any hematuria. There is no family history of tuberculosis there is family history for lung cancer in her maternal uncle and cirrhosis due to alcoholism in her maternal grandfather. There is also family history for myocardial infarctions hyperlipidemia and type 2 diabetes mellitus in both her parents. Treatment emergency room consisted of Solu-Medrol 125 mg IV along with DuoNeb aerosol treatments and initiation of parenteral antibiotics including Rocephin 2 g IV and doxycycline 100 mg IV. Subsequent to the infusion of doxycycline she developed some pain in her right arm just above the infusion site and the doxycycline was discontinued and the IV was flushed and her symptoms have since resolved. Review of Systems Constitutional Reports as per HPI Eyes Reports system reviewed and no additional complaints, except as docu ENT Reports as per HPI Cardiovascular Reports system reviewed and no additional complaints, except as docu Respiratory Reports as per HPI Gastrointestinal Reports system reviewed and no additional complaints, except as docu Genitourinary Reports system reviewed and no additional complaints, except as docu Musculoskeletal Reports system reviewed and no additional complaints, except as docu Integumentary/Breasts Reports system reviewed and no additional complaints, except as docu Neurologic Reports system reviewed and no additional complaints, except as docu Endocrine Reports system reviewed and no additional complaints, except as docu Hematologic/Lymphatic Reports system reviewed and no additional complaints, except as docu Allergic/Immunologic Reports system reviewed and no additional complaints, except as docu PFSH Medical History Allergic rhinitis (Acute) Family history of diabetes mellitus in first degree relative (Acute) Both parents. Family history of myocardial infarction (Acute) MS in mother in mid 50s History of gestational diabetes (Acute) PCOS (polycystic ovarian syndrome) Surgical History Arthroplasty of knee 04/15/16 [facility]-LEFT KNEE WITH ACL Biopsy of breast benign section Family History Sister Polycystic ovaries Hypertension Mother Hypertensive disorder, systemic arterial Diabetes Hyperlipidemia Stroke Father Diabetes Hyperlipidemia Hypertension Brother , 14 No problems noted. Sister No problems noted. Maternal Grandfather , 45 Alcohol abuse Paternal Grandfather , 60 Diabetes Maternal Grandmother , 85 Heart disease Hyperlipidemia Paternal Grandmother No problems noted. Son No problems noted. Daughter No problems noted. Social History (Updated 10/28/18 @ 22:25 by Toni De Jesus) Smoking/Tobacco Use Status: Never Alcohol Intake: current Alcohol Intake frequency: a few times a week Alcohol type: hard liquor Drug use: Socially Substance use type: marijuana Caregiver/Support person: No Household members: spouse and children Housing: house Communication Needs: None Do you need help understanding health information?: Never Pets and animals: No Sexually active: Yes Do you think of yourself as: straight/heterosexual Current gender identity: female What is your relationship status?: How often do you talk on the phone with friends or family?: three or more times per week How often do you get together with friends or relatives?: twice per week How often do you attend hinduism or quaker services?: decline to answer Do you belong to any clubs or organized social groups?: yes Panel score (0-1 are the most socially isolated patients): 3 What type of physical activity do you participate in: other Duration: < 15 minutes/day Frequency: 1-2 times per week Dennise/Adventist: None Special dennise needs: No Seatbelt use: always Helmet use: Yes Helmet use: always Drive intox or ride w/intox cdl a driver: No Do you feel safe at home: Yes Do you feel safe in your relationship?: Yes History History 2 Para Hx # Term Pregnancies 2 Multiple births Hx # Pregnancies Ectopic pregnancies AB induced Hx Number of Living Children 2 AB spontaneous Meds Home Medications Medication Instructions Recorded Confirmed Type Centrum Tablet 1 tab PO DAILY 05/30/12 10/28/18 History Probiotic 1 ea PO DAILY 08/21/13 10/28/18 History albuterol sulfate 1 inh IH Q4H PRN #8.5 gm 10/23/18 10/28/18 Rx doxycycline hyclate 100 mg PO BID #19 tab 10/23/18 10/28/18 Rx Allergies Allergy/AdvReac Type Severity Reaction Status Date / Time No Known Drug Allergies Allergy Verified 10/28/18 15:49 Exam Narrative Exam Narrative: limited exam to inspection and palpation of abdomen and chest and neck and limbs; due to use of hooded ventilation system for TB protection I was unable to auscultate her chest for cardiac and pulmonary exam and unable to use otoscope for evaluation of ENT exam. I would refer you to ER examination for details Const General: cooperative, healthy appearing, no acute distress, well developed and well groomed Nutritional Appearance: overweight Orientation: alert, awake and oriented x3 GI Inspection: normal to inspection Palpation: soft and no hepatosplenomegaly Percussion: normal to percussion General: bimanual renal exam normal bilaterally, bladder normal to palpation and No CVA tenderness Bimanual Exam- Vagina & Uterus: bladder normal to palpation Back/Spine/Pelvis Back: no CVA tenderness Cervical Spine: normal cervical lordosis Thoracic/Lumbar Spine: thoracic and lumbar spine normal to inspection Extrem General: normal to inspection, full ROM, normal capillary refill, no joint enlargement, no clubbing, cyanosis or edema, no pedal edema and no calf tenderness Results Imaging CT scan - chest: image reviewed EKG: image reviewed Labs : 10/28/18 16:35 10/28/18 16:35 Laboratory Results - last 24 hr 10/28/18 10/28/18 10/28/18 16:35 16:35 16:35 WBC 14.06 H RBC 4.58 Hgb 13.8 Hct 41.1 MCV 89.7 MCH 30.1 MCHC 33.6 RDW 13.6 Plt Count 384 MPV 9.2 Immature Gran % 0.4 Neutrophils % 55.8 Lymphocytes % 22.8 Monocytes % 7.5 Eosinophils % 13.2 Basophils % 0.3 Absolute Neutrophils 7.85 H Absolute Lymphocytes 3.21 Absolute Monocytes 1.05 H Absolute Eosinophils 1.86 H Absolute Basophils 0.04 Differential Comment Agrees w/ instrument RBC Morphology Normal PT INR APTT Sodium 139 Potassium 3.9 Chloride 103 Carbon Dioxide 24.2 Anion Gap 11.8 H BUN 13 Creatinine 0.86 Estimated GFR/1.73 m2 >= 60.00 Glucose 86 Lactate 1.3 Calcium 8.5 Total Bilirubin 0.2 AST 19 ALT 27 Alkaline Phosphatase 74 Troponin I < 0.05 NT-Pro-B Natriuret Pep 42 Total Protein 7.9 Albumin 3.4 10/28/18 16:35 WBC RBC Hgb Hct MCV MCH MCHC RDW Plt Count MPV Immature Gran % Neutrophils % Lymphocytes % Monocytes % Eosinophils % Basophils % Absolute Neutrophils Absolute Lymphocytes Absolute Monocytes Absolute Eosinophils Absolute Basophils Differential Comment RBC Morphology PT 9.7 INR 1.0 APTT 26.3 Sodium Potassium Chloride Carbon Dioxide Anion Gap BUN Creatinine Estimated GFR/1.73 m2 Glucose Lactate Calcium Total Bilirubin AST ALT Alkaline Phosphatase Troponin I NT-Pro-B Natriuret Pep Total Protein Albumin Last Vital Signs Temp 37.0 C 10/28/18 20:44 Pulse 115 H 10/28/18 20:44 Resp 20 10/28/18 20:44 BP 114/70 10/28/18 20:44 Pulse Ox 96 10/28/18 20:44
[2018-10-28] MEDS: guaiFENesin 600 MG TABCR 1200 MG PO (23:38)
[2018-10-28] MEDS: Benzonatate 200 MG CAP PO (23:39)
[2018-10-28] MEDS: Normal Saline Flush 10 ML SYR IVP (23:39)
[2018-10-28] MEDS: methylPREDNISolone SUCC 125 MG VIAL 60 MG IVP (23:39)
[2018-10-29 03:00] VITALS: BP 112/72; PULSE 105; RESP 20; TEMP 36.7; O2SAT 96
[2018-10-29 03:41] LABS: Bilirubin Negative (Negative); Blood Negative (Negative); Clarity Clear (Clear); Glucose Negative (Negative); Ketones Negative (Negative); Leukocyte Esterase Negative (Negative); Nitrite Negative (Negative); Urobilinogen 0.2 EU/dL (Up TO 0.2)
--- NOTE | 2018-10-29 06:51 | NUR.NOTE ---
Addendum entered by Melissa Zavala 10/29/18 06:54: She is placed on precautions because of suspection of TB exposure. She is totally alert and oriented x 3, but having a persistent intermittent coughing symptoms. She was placed in bed and oriented to room. Assessments done and charted. Original Note: Patient was admitted the med-surg unit last pm with history of coughing up streaks of blood after her symptoms worsened since getting treatment in the ER 5 days prior. She currently placed on precayu
[2018-10-29] MEDS: Lactobacillus Acidophilus CAP 1 CAP PO (08:59)
[2018-10-29] MEDS: methylPREDNISolone SUCC 125 MG VIAL 60 MG IVP ×2 (08:59→16:02)
[2018-10-29] MEDS: guaiFENesin 600 MG TABCR 1200 MG PO ×2 (08:59→19:40)
[2018-10-29] MEDS: Benzonatate 200 MG CAP PO ×3 (08:59→19:40)
[2018-10-29] MEDS: Normal Saline Flush 10 ML SYR IVP ×3 (09:00→17:42)
[2018-10-29 09:17] VITALS: BP 124/83; PULSE 90; RESP 18; TEMP 36; O2SAT 95
[2018-10-29 11:28] LABS: Abs Immature Grans 0.12 k/cumm (0.0-0.09); Absolute Lymphocyte Count 1.45 k/cumm (1.2-3.4); Absolute Monocyte Count 0.61 k/cumm (0.11-0.7); HCT 40.3 % (36.0-46.0); HGB 13.8 g/dL (12.0-15.5); Immature Grans % 0.5; Lymphocytes % 5.9; Mean Corp. HGB Concentration 34.2 g/dL (32.0-36.0); Mean Corpuscular Hemoglobin 30.5 pg (27.0-33.0); Mean Platelet Volume 9.3 fL (8.0-11.0); Monocytes % 2.5; Neutrophils % 91.1; Platelet Count 400 x1000/uL (130-400); RBC 4.53 m/cumm (4.00-5.20); RBC Distribution Width 13.8 % (11.7-14.6); White Blood Cell Count 24.53 k/cumm (4.4-10.8)
[2018-10-29 11:30] LABS: Absolute Neutrophil Count 22.35 k/cumm (1.2-6.7)
[2018-10-29 11:31] LABS: Anion Gap 13.4 mmol/L (3-11); BUN 9 mg/dL (7-18); CO2 21.6 mmol/L (21.0-32.0); CREATININE 1.01 mg/dL (0.55-1.02); Calcium 8.9 mg/dL (8.5-10.1); Chloride 106 mmol/L (98-107); Glucose 155 mg/dL (70-100); Sodium 141 mmol/L (136-145)
[2018-10-29 12:01] LABS: Diff Comment Agrees w/ Instrument; RBC Morphology Normal
[2018-10-29] MEDS: Multivitamin w/Minerals TAB 1 TAB PO (14:42)
--- NOTE | 2018-10-29 15:08 | NUR.NOTE ---
Nursing Note: Pt declining to have IV fluids hooked up. NS @ 150 ml/hr ordered. Pt has excellent oral intake of H2O and doesn't want to be hooked up to a line if it's not medically necessary. Feels like she is drinking enough water. CC Miguel A bass, RN notified. unable to document refusal in APR.
--- NOTE | 2018-10-29 18:01 | PGE_ITS ---
Date of Service Date of service: 10/29/18 Time of Service: 18:01 Assessment and Plan (1) Pulmonary infiltrate: Current visit: Yes Status: Acute Potential for pneumonia by symptoms, including fevers and hemoptysis. Patient appears vastly improved with broadening of antibiotic therapy. - Continue Ceftriaxone - as Mrs. Eubanks did not improve while on doxy, will discontinue and favor Azithromycin instead. - Await culture results. - Given pulmonary nodules, currently awaiting sputum AFB, PPD, and Quantiferon Gold test. Continue respiratory precautions and negative airflow isolation while awaiting results. - Also with PARKER, ANCA, Legionella ordered at admission and pending at this time. (2) Lung nodules: Current visit: Yes Status: Acute Will need follow-up imaging in 3-6 months, with further evaluation pending results. (3) Hemoptysis: Current visit: Yes Status: Acute As above. (4) DVT prophylaxis: Current visit: Yes Status: Acute Holding chemical DVT prophylaxis given complaints of hemoptysis (blood streaked sputum). Initiate SCD's. Subjective Interval history since last seen: Very pleasant 43-year-old woman with a prior history of Gestational DM, admitted from [facility] Emergency Department on 10/28/2018 with a diagnosis of Pneumonia. She presented to the ED with complaints of a purulent cough over the prior 2 weeks, with a new onset of hemoptysis. Patient reports a history of a respiratory illness/influenza in April, with an intermittently ongoing cough since that time. She initially presented to the ED on October 23, with CXR showing no acute abnormalities. Given her wheezing she was treated with nebulizer therapy with improvement in her symptoms, and diagnosed with sinusitis and Tracheobronchitis and prescribed oral Doxycycline and an albuterol inhaler. Since that time however she reports worsening in her cough, one episode of night sweats, and development of blood streaks in her sputum. Although she has had no ill contacts, she does report visiting a friend recently whose sister had just completed treatment for Tuberculosis. Work-up in the ED was remarkable for unremarkable labs, CT scan that was negative for PE but showed evidence of infiltrates vs. scarring in the apices, as well as pulmonary nodules. Upon specific questioning the patient denied any night sweats, weight loss, or other bouts of hemoptysis prior to her current symptoms. She was initiated on antibiotic therapy and referred for admission. This morning the patient reports vast improvement in her symptoms. No overnight were reported. She remains afebrile. Exam Narrative Exam Narrative: General: Patient appears comfortable, AAOX3, NAD Neck: Supple CV: Regular, nontachycardic, S1S2, No rubs, murmurs, or gallops. Pulmonary: Clear to auscultation bilaterally, no crackles, wheezing, or rhonchi Abdomen: + Bowel Sounds, soft, nontender, nondistended Vascular: No lower extremity edema Psych: Normal mood and affect. Objective Objective Clinical Data: Abnormal lab results 10/29/18 10/29/18 Range/Units 11:10 11:10 WBC 24.53 H D (4.4-10.8) k/cumm Absolute Neutrophils 22.35 H (1.2-6.7) k/cumm Anion Gap 13.4 H (3-11) mmol/L Glucose 155 H (70-100) mg/dL Vital Signs Temperature 36 C L 10/29/18 09:17 Temperature Source Tympanic 10/29/18 09:17 Pulse 90 10/29/18 09:17 Pulse Rhythm Regular 10/29/18 16:25 Respiratory Rate 18 10/29/18 09:17 Respiratory Effort Non-Labored 10/29/18 16:25 Respiratory Depth Normal 10/29/18 16:25 Respiratory Pattern Normal 10/29/18 16:25 Blood Pressure 124/83 10/29/18 09:17 Blood Pressure Mean 80 10/28/18 16:32 Blood Pressure Position Sitting 10/28/18 15:44 Pulse Oximetry 95 10/29/18 09:17 Oxygen Delivery Method Room Air 10/29/18 09:17 Oxygen Flow Rate 0 10/29/18 09:17 Pain Level 0 10/29/18 09:17 Intake & Output 10/28/18 10/29/18 10/29/18 23:59 11:59 23:59 Intake Total 1086.667 / 4604.211 3699 / 2035.7 1036.66 / 2035. Balance 1086.667 / 7787.087 9347 / 2035. 103. / 2035. Weight 67.132 kg Intake: IV 1086.667 / 1086.667 36.667 / 36.667 Oral 999 Other: Urine Color Pale Yellow Urine Appearance Clear Clear Clear Urine Odor None Voiding Methods Toilet Laboratory Results WBC 24.53 k/cumm (4.4-10.8) H D 10/29/18 11:10 RBC 4.53 m/cumm (4.00-5.20) 10/29/18 11:10 Hgb 13.8 g/dL (12.0-15.5) 10/29/18 11:10 Hct 40.3 % (36.0-46.0) 10/29/18 11:10 MCV 89.0 fL (80-95) 10/29/18 11:10 MCH 30.5 pg (27.0-33.0) 10/29/18 11:10 MCHC 34.2 g/dL (32.0-36.0) 10/29/18 11:10 RDW 13.8 % (11.7-14.6) 10/29/18 11:10 Plt Count 400 x1000/uL (130-400) 10/29/18 11:10 MPV 9.3 fL (8.0-11.0) 10/29/18 11:10 Immature Gran % 0.5 10/29/18 11:10 91.1 10/29/18 11:10 5.9 10/29/18 11:10 2.5 10/29/18 11:10 0.0 10/29/18 11:10 0.0 10/29/18 11:10 Absolute Neutrophils 22.35 k/cumm (1.2-6.7) H 10/29/18 11:10 Absolute Lymphocytes 1.45 k/cumm (1.2-3.4) 10/29/18 11:10 Absolute Monocytes 0.61 k/cumm (0.11-0.7) 10/29/18 11:10 Absolute Eosinophils 0.00 k/cumm (0.0-0.7) 10/29/18 11:10 Absolute Basophils 0.00 k/cumm (0.0-0.2) 10/29/18 11:10 Agrees w/ instrument 10/29/18 11:10 RBC Morphology Normal 10/29/18 11:10 PT 9.7 sec (9.3-11.0) 10/28/18 16:35 INR 1.0 (0.9-1.1) 10/28/18 16:35 APTT 26.3 sec (21.0-31.4) 10/28/18 16:35 Sodium 141 mmol/L (136-145) 10/29/18 11:10 Potassium 4.0 mmol/L (3.5-5.1) 10/29/18 11:10 Chloride 106 mmol/L (98-107) 10/29/18 11:10 Carbon Dioxide 21.6 mmol/L (21.0-32.0) 10/29/18 11:10 13.4 mmol/L (3-11) H 10/29/18 11:10 BUN 9 mg/dL (7-18) 10/29/18 11:10 1.01 mg/dL (0.55-1.02) 10/29/18 11:10 >= 60.00 (mL/min/1.73m2) 10/29/18 11:10 Glucose 155 mg/dL (70-100) H 10/29/18 11:10 1.3 mmol/L (0.6-1.4) 10/28/18 16:35 Calcium 8.9 mg/dL (8.5-10.1) 10/29/18 11:10 0.2 mg/dL (0.2-1.0) 10/28/18 16:35 AST 19 U/L (15-37) 10/28/18 16:35 ALT 27 U/L (14-59) 10/28/18 16:35 74 U/L (46-116) 10/28/18 16:35 < 0.05 ng/mL (0.00-0.06) 10/28/18 16:35 NT-Pro-B Natriuret Pep 42 pg/mL (-299) 10/28/18 16:35 7.9 g/dL (6.4-8.2) 10/28/18 16:35 3.4 g/dL (3.4-5.0) 10/28/18 16:35 Yellow (Yellow) 10/29/18 03:35 Clear (Clear) 10/29/18 03:35 7.0 (5-8) 10/29/18 03:35 Ur Specific [place] 1.010 (1.005-1.025) 10/29/18 03:35 Negative mg/dL (Negative) 10/29/18 03:35 Negative mg/dL (Negative) 10/29/18 03:35 Negative (Negative) 10/29/18 03:35 Negative (Negative) 10/29/18 03:35 Negative (Negative) 10/29/18 03:35 0.2 EU/dL (Up TO 0.2) 10/29/18 03:35 Ur Leukocyte Esterase Negative (Negative) 10/29/18 03:35 Negative mg/dL (Negative) 10/29/18 03:35 PARKER Titer Cancelled 10/28/18 16:35 PARKER Titer 2 Cancelled 10/28/18 16:35 PARKER Titer 3 Cancelled 10/28/18 16:35 PARKER Interpretation Cancelled 10/28/18 16:35 Cancelled 10/28/18 16:35 Cancelled 10/28/18 16:35 ANCA CMMT Cancelled 10/28/18 16:35
[2018-10-29 22:08] VITALS: BP 112/71; PULSE 85; RESP 18; TEMP 36.3; O2SAT 94
[2018-10-30] MEDS: Azithromycin 250 MG TAB PO (08:31)
[2018-10-30] MEDS: methylPREDNISolone SUCC 40 MG VIAL IVP ×2 (08:31→15:53)
[2018-10-30] MEDS: Benzonatate 200 MG CAP PO ×3 (08:31→20:42)
[2018-10-30] MEDS: Pantoprazole 40 MG TABCR PO (08:31)
[2018-10-30] MEDS: guaiFENesin 600 MG TABCR 1200 MG PO ×2 (08:31→20:42)
[2018-10-30] MEDS: Lactobacillus Acidophilus CAP 1 CAP PO (08:32)
[2018-10-30] MEDS: Normal Saline Flush 10 ML SYR IVP ×2 (08:35→15:53)
[2018-10-30 08:42] VITALS: BP 131/86; PULSE 79; RESP 16; TEMP 36.2; O2SAT 96
[2018-10-30 08:44] LABS: Abs Immature Grans 0.15 k/cumm (0.0-0.09); Absolute Monocyte Count 1.41 k/cumm (0.11-0.7); Absolute Neutrophil Count 23.32 k/cumm (1.2-6.7); Basophils % 0.1; HCT 40.4 % (36.0-46.0); HGB 13.6 g/dL (12.0-15.5); Immature Grans % 0.5; Lymphocytes % 11.6; Mean Corp. HGB Concentration 33.7 g/dL (32.0-36.0); Mean Corpuscular Hemoglobin 30.3 pg (27.0-33.0); Mean Platelet Volume 9.1 fL (8.0-11.0); Neutrophils % 82.8; Platelet Count 408 x1000/uL (130-400); RBC 4.49 m/cumm (4.00-5.20); RBC Distribution Width 14.1 % (11.7-14.6)
[2018-10-30 08:51] LABS: Anion Gap 9.4 mmol/L (3-11); BUN 13 mg/dL (7-18); CO2 24.6 mmol/L (21.0-32.0); CREATININE 0.83 mg/dL (0.55-1.02); Calcium 8.3 mg/dL (8.5-10.1); Chloride 106 mmol/L (98-107); Glucose 96 mg/dL (70-100); Magnesium 2.4 mg/dL (1.8-2.4); Potassium 3.9 mmol/L (3.5-5.1); Sodium 140 mmol/L (136-145)
[2018-10-30 09:01] LABS: Absolute Basophil Count 0.03 k/cumm (0.0-0.2); Absolute Lymphocyte Count 3.27 k/cumm (1.2-3.4); Diff Comment Agrees w/ Instrument; RBC Morphology Normal; White Blood Cell Count 28.17 k/cumm (4.4-10.8)
--- NOTE | 2018-10-30 10:41 | W.PM.PROGNOT ---
Date of Service Date of service: 10/30/18 Time of Service: 10:41 Assessment and Plan (1) Pulmonary infiltrate: Current visit: Yes Status: Acute Potential for pneumonia by symptoms, including fevers and hemoptysis. Patient appeared vastly improved on her current antibiotic therapy, worsened from a wheezing standpoint with attempt to wean steroids. - Continue Ceftriaxone - as Mrs. Eubanks did not improve while on doxy, Azithromycin was initiated instead. Currently day #2 of this regimen. - Await culture results, including Legionella, M. Pneumoniae, AFB, and Quantiferon Gold. - Given pulmonary nodules, currently awaiting sputum AFB, PPD, and Quantiferon Gold test as above. Continue respiratory precautions and negative airflow isolation while awaiting results. - Also with PARKER, ANCA, Legionella ordered at admission and pending at this time. - Given worsening wheezing will increase IV Steroids, and initiate standing Budesonide and Duoneb. - Worsening leukocytosis may be on the basis of concurrent IV Steroid use. (2) Lung nodules: Current visit: Yes Status: Acute Will need follow-up imaging in 3-6 months, with further evaluation pending results. (3) Hemoptysis: Current visit: Yes Status: Acute As above. (4) DVT prophylaxis: Current visit: Yes Status: Acute Holding chemical DVT prophylaxis given complaints of hemoptysis (blood streaked sputum). Initiated SCD's. Subjective Interval history since last seen: Very pleasant 43-year-old woman with a prior history of Gestational DM, admitted from [facility] Emergency Department on 10/28/2018 with a diagnosis of Pneumonia. Mrs. Eubanks presented to the ED with complaints of a purulent cough over the prior 2 weeks, with a new onset of hemoptysis. Patient reported a history of a respiratory illness/influenza in April, with an intermittently ongoing cough since that time. She initially presented to the ED on October 23, with CXR showing no acute abnormalities. Given her wheezing she was treated with nebulizer therapy with improvement in her symptoms, and diagnosed with sinusitis and Tracheobronchitis and prescribed oral Doxycycline and an albuterol inhaler. Since that time however she reports worsening in her cough, one episode of night sweats, and development of blood streaks in her sputum. Although she has had no ill contacts, she did report visiting a friend recently whose sister had just completed treatment for Tuberculosis. Work-up in the ED was remarkable for leukocytosis, CT scan that was negative for PE but showed evidence of infiltrates vs. scarring in the apices, as well as pulmonary nodules. Upon specific questioning the patient denied any night sweats, weight loss, or other bouts of hemoptysis prior to her current symptoms. She was initiated on antibiotic therapy and referred for admission. The patient initially reported vast improvement in symptoms, but today states that her wheezing is worse. Her leukocytosis has worsened while on IV Steroids, and sputum culture is not revealing. Sputum AFB, Quantiferon Gold, M. Pneumoniae, and Legionella are still pending, as his her PPD test. No overnight were reported. She remains afebrile. Exam Narrative Exam Narrative: General: Patient appears comfortable, AAOX3, NAD Neck: Supple CV: Regular, nontachycardic, S1S2, No rubs, murmurs, or gallops. Pulmonary: Evidence of diffuse wheezing, new on exam since yesterday Abdomen: + Bowel Sounds, soft, nontender, nondistended Vascular: No lower extremity edema Psych: Normal mood and affect. Objective Objective Clinical Data: Abnormal lab results 10/29/18 10/29/18 10/30/18 Range/Units 11:10 11:10 08:11 WBC 24.53 H D (4.4-10.8) k/cumm Plt Count (130-400) x1000/uL Absolute Neutrophils 22.35 H (1.2-6.7) k/cumm Absolute Monocytes (0.11-0.7) k/cumm Anion Gap 13.4 H (3-11) mmol/L Glucose 155 H (70-100) mg/dL Calcium 8.3 L (8.5-10.1) mg/dL 10/30/18 Range/Units 08:30 WBC 28.17 H* (4.4-10.8) k/cumm Plt Count 408 H (130-400) x1000/uL Absolute Neutrophils 23.32 H (1.2-6.7) k/cumm Absolute Monocytes 1.41 H (0.11-0.7) k/cumm Anion Gap (3-11) mmol/L Glucose (70-100) mg/dL Calcium (8.5-10.1) mg/dL Vital Signs Temperature 36.2 C L 10/30/18 08:42 Temperature Source Tympanic 09/01/19 08:42 Pulse 79 10/30/18 08:42 Pulse Rhythm Regular 10/30/18 08:43 Respiratory Rate 16 10/30/18 08:42 Respiratory Effort Non-Labored 10/30/18 08:43 Respiratory Depth Normal 10/30/18 08:43 Respiratory Pattern Normal 10/30/18 08:43 Blood Pressure 131/86 10/30/18 08:42 Blood Pressure Mean 80 10/28/18 16:32 Blood Pressure Position Sitting 10/28/18 15:44 Pulse Oximetry 96 10/30/18 08:42 Oxygen Delivery Method Room Air 10/30/18 08:42 Oxygen Flow Rate 0 10/30/18 08:42 Pain Level 5 10/30/18 08:42 Comment 10/30/18 08:42 Intake & Output 10/29/18 10/29/18 10/30/18 11:59 23:59 11:59 Intake Total 999 / 2085.667 1086.667 / 6.667 Balance 999 / 2085. 1086.667 / 2085.66 Intake: IV 86.667 / 86.667 Oral 999 / 1999 999 / 1999 Other: Urine Color Pale Yellow Urine Appearance Clear Clear Urine Odor None Comment patient uses toilet independently reports voiding this am Voiding Methods Toilet Toilet Toilet Laboratory Results WBC 28.17 k/cumm (4.4-10.8) H* 10/30/18 08:30 RBC 4.49 m/cumm (4.00-5.20) 10/30/18 08:30 Hgb 13.6 g/dL (12.0-15.5) 10/30/18 08:30 Hct 40.4 % (36.0-46.0) 10/30/18 08:30 MCV 90.0 fL (80-95) 10/30/18 08:30 MCH 30.3 pg (27.0-33.0) 10/30/18 08:30 MCHC 33.7 g/dL (32.0-36.0) 10/30/18 08:30 RDW 14.1 % (11.7-14.6) 10/30/18 08:30 Plt Count 408 x1000/uL (130-400) H 10/30/18 08:30 MPV 9.1 fL (8.0-11.0) 10/30/18 08:30 Immature Gran % 0.5 10/30/18 08:30 82.8 10/30/18 08:30 11.6 10/30/18 08:30 5.0 10/30/18 08:30 0.0 10/30/18 08:30 0.1 10/30/18 08:30 Absolute Neutrophils 23.32 k/cumm (1.2-6.7) H 10/30/18 08:30 Absolute Lymphocytes 3.27 k/cumm (1.2-3.4) 10/30/18 08:30 Absolute Monocytes 1.41 k/cumm (0.11-0.7) H 10/30/18 08:30 Absolute Eosinophils 0.00 k/cumm (0.0-0.7) 10/30/18 08:30 Absolute Basophils 0.03 k/cumm (0.0-0.2) 10/30/18 08:30 Agrees w/ instrument 10/30/18 08:30 RBC Morphology Normal 10/30/18 08:30 PT 9.7 sec (9.3-11.0) 10/28/18 16:35 INR 1.0 (0.9-1.1) 10/28/18 16:35 APTT 26.3 sec (21.0-31.4) 10/28/18 16:35 Sodium 140 mmol/L (136-145) 10/30/18 08:11 Potassium 3.9 mmol/L (3.5-5.1) 10/30/18 08:11 Chloride 106 mmol/L (98-107) 10/30/18 08:11 Carbon Dioxide 24.6 mmol/L (21.0-32.0) 10/30/18 08:11 9.4 mmol/L (3-11) 10/30/18 08:11 BUN 13 mg/dL (7-18) 10/30/18 08:11 0.83 mg/dL (0.55-1.02) 10/30/18 08:11 >= 60.00 (mL/min/1.73m2) 10/30/18 08:11 Glucose 96 mg/dL (70-100) D 10/30/18 08:11 1.3 mmol/L (0.6-1.4) 10/28/18 16:35 Calcium 8.3 mg/dL (8.5-10.1) L 10/30/18 08:11 Magnesium 2.4 mg/dL (1.8-2.4) 10/30/18 08:11 0.2 mg/dL (0.2-1.0) 10/28/18 16:35 AST 19 U/L (15-37) 10/28/18 16:35 ALT 27 U/L (14-59) 10/28/18 16:35 74 U/L (46-116) 10/28/18 16:35 < 0.05 ng/mL (0.00-0.06) 10/28/18 16:35 NT-Pro-B Natriuret Pep 42 pg/mL (-299) 10/28/18 16:35 7.9 g/dL (6.4-8.2) 10/28/18 16:35 3.4 g/dL (3.4-5.0) 10/28/18 16:35 Yellow (Yellow) 10/29/18 03:35 Clear (Clear) 10/29/18 03:35 7.0 (5-8) 10/29/18 03:35 Ur Specific [place] 1.010 (1.005-1.025) 10/29/18 03:35 Negative mg/dL (Negative) 10/29/18 03:35 Negative mg/dL (Negative) 10/29/18 03:35 Negative (Negative) 10/29/18 03:35 Negative (Negative) 10/29/18 03:35 Negative (Negative) 10/29/18 03:35 0.2 EU/dL (Up TO 0.2) 10/29/18 03:35 Ur Leukocyte Esterase Negative (Negative) 10/29/18 03:35 Negative mg/dL (Negative) 10/29/18 03:35 PARKER Titer Cancelled 10/28/18 16:35 PARKER Titer 2 Cancelled 10/28/18 16:35 PARKER Titer 3 Cancelled 10/28/18 16:35 PARKER Interpretation Cancelled 10/28/18 16:35 Cancelled 10/28/18 16:35 Cancelled 10/28/18 16:35 ANCA CMMT Cancelled 10/28/18 16:35
[2018-10-30 12:21] VITALS: RESP 4
[2018-10-30] MEDS: Multivitamin w/Minerals TAB 1 TAB PO (12:21)
[2018-10-30] MEDS: Albuterol/Ipratropium 3 ML UPD VIAL UPD (12:21)
[2018-10-30] MEDS: Budesonide 0.5 MG/2 ML UPD VIAL UPD (13:27)
[2018-10-30 17:06] VITALS: BP 114/72; PULSE 78; RESP 18; TEMP 36.6; O2SAT 96
[2018-10-30 18:48] VITALS: BP 129/82; PULSE 89; O2SAT 97
--- NOTE | 2018-10-30 18:49 | NUR.NOTE ---
Nursing Note: Pt called RN, c/o SOB, dizzyness, right arm and leg pain. VSS. Pt reassured and states symptoms somewhat improved. ADOLPH Torres alerted and will continue to monitor.
--- NOTE | 2018-10-30 19:02 | NUR.NOTE ---
Patient state she started feeling numbness and tingling on her right side, state she went to the bathroom just prior to nursing coming in and she feel as if she is not walking normal. State her face feels numb and tingly and she feels as if a lot of pressure is in her arm. State she is feeling a throbbing sensation and pulsating pain to her neck, all these symptoms commenced after completion of her Cefrtiaxone medication. Patient is very tearful and scared at the moment, vital signs done and charted. On assessment lung sounds a little wheey but patient denies any chest pain or pressure. Good muscle strength throughout. CC was made aware of pt present complains
--- NOTE | 2018-10-30 22:12 | PDOC.CMIN ---
- If Service Date Differs Date of service: 10/30/18 Time of Service: 19:00 Care Management Initial Assess REASON FOR HOSPITALIZATION:: Bronchitis R/O TB PAST MEDICAL HISTORY/PAST SURGICAL HISTORY:: Migrains, Gestational DM, Allergic Rhinitis PREVIOUS FUNCTIONAL STATUS/SOCIAL/FAMILY SUPPORTS:: Deya lives with her spouse and two children in [place], [place]. 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 She is independent, she walks and hikes often. CURRENT FUNCTIONAL STATUS:: Deya is lying in bed when CM arrives she complains of cough and discomfort on her right side including her arm. She states she has not been feeling well this evening worae post Abx. CM did follow up with primary nurse and RNCC. Samantha would like the copy of her CT report prior to discharge. She requested sign up for the portal. ADVANCE DIRECTIVES:: None on file Has patient been provided with information about the portal?: Yes Did the patient sign up for the portal?: Yes CODE STATUS:: Full Code INSURANCE COVERAGE / FINANCIAL ISSUES:: BCBS CURRENT HOME/COMMUNITY SERVICES/EQUIPMENT:: None PRIMARY CARE PHYSICIAN:: Dr. Dutton POTENTIAL DISCHARGE NEEDS:: Follow up primary care and pulmonoligist if appropiate PATIENT/FAMILY EDUCATION NEEDS:: Discharge education, limitation, and follow up plan of care. ANTICIPATED BARRIERS TO DISCHARGE:: Pending results including PPD TRANSPORTATION:: Via private car with family PLAN:: Deya will be discharged when medically ready. She os hopeful it will be on Wednesday. Annticipate no addtional services at time of discharge.
[2018-10-31] MEDS: Normal Saline Flush 10 ML SYR IVP ×2 (00:47→08:44)
[2018-10-31] MEDS: Budesonide 0.5 MG/2 ML UPD VIAL UPD (00:47)
[2018-10-31 00:48] VITALS: BP 115/78; PULSE 68; RESP 20; TEMP 35.9; O2SAT 96
[2018-10-31] MEDS: methylPREDNISolone SUCC 40 MG VIAL IVP ×2 (00:48→08:47)
[2018-10-31] MEDS: diphenhydrAMINE 25 MG CAP PO (01:40)
[2018-10-31] MEDS: Ibuprofen 800 MG TAB PO (01:40)
[2018-10-31 06:44] LABS: Absolute Basophil Count 0.02 k/cumm (0.0-0.2); Basophils % 0.1; HCT 41.3 % (36.0-46.0); HGB 13.9 g/dL (12.0-15.5); Immature Grans % 0.9; Lymphocytes % 8.2; Mean Corp. HGB Concentration 33.7 g/dL (32.0-36.0); Mean Corpuscular Hemoglobin 30.4 pg (27.0-33.0); Mean Corpuscular Volume 90.4 fL (80-95); Mean Platelet Volume 9.6 fL (8.0-11.0); Monocytes % 2.8; Platelet Count 406 x1000/uL (130-400); RBC 4.57 m/cumm (4.00-5.20); RBC Distribution Width 14.1 % (11.7-14.6); White Blood Cell Count 23.18 k/cumm (4.4-10.8)
[2018-10-31 06:48] LABS: Absolute Monocyte Count 0.65 k/cumm (0.11-0.7)
[2018-10-31 06:53] LABS: Anion Gap 12.2 mmol/L (3-11); BUN 15 mg/dL (7-18); CO2 21.8 mmol/L (21.0-32.0); CREATININE 0.86 mg/dL (0.55-1.02); Calcium 8.3 mg/dL (8.5-10.1); Chloride 106 mmol/L (98-107); Glucose 130 mg/dL (70-100); Magnesium 2.4 mg/dL (1.8-2.4); Potassium 4.5 mmol/L (3.5-5.1); Sodium 140 mmol/L (136-145)
[2018-10-31 07:12] LABS: Diff Comment Agrees w/ Instrument
[2018-10-31 07:13] LABS: RBC Morphology Normal
[2018-10-31 07:55] VITALS: BP 159/92; PULSE 78; RESP 18; TEMP 36.5; O2SAT 96
[2018-10-31] MEDS: Azithromycin 250 MG TAB PO (08:43)
[2018-10-31] MEDS: Lactobacillus Acidophilus CAP 1 CAP PO (08:43)
[2018-10-31] MEDS: guaiFENesin 600 MG TABCR 1200 MG PO (08:43)
[2018-10-31] MEDS: Pantoprazole 40 MG TABCR PO (08:43)
[2018-10-31] MEDS: Benzonatate 200 MG CAP PO ×2 (08:43→13:31)
[2018-10-31 09:15] VITALS: BP 124/85
--- NOTE | 2018-10-31 11:47 | NUR.NOTE ---
Patients PPD site is negative. No reddness or swelling around site. Nursing Note:
[2018-10-31] MEDS: Multivitamin w/Minerals TAB 1 TAB PO (11:55)
--- NOTE | 2018-10-31 12:36 | DSE_ITS ---
Date of service: 10/31/18 Time of Service: 12:37 DS: Diagnosis Discharge Diagnosis (1) Pulmonary infiltrate: Status: Acute (2) Lung nodules: Status: Acute (3) Hemoptysis: Status: Acute Discharge Plan Disposition Patient Disposition: HOME Condition: Stable Discharge Details Chief Complaint: RespSymp Clinical Impression: Community acquired pneumonia, Cough, Wheeze Reason For Visit: PNEUMONIA, COUGH,HEMOPTYSIS Admit Date/Time: 10/28/18 18:39 Admit Provider: Toni De Jesus Attending Provider: Toni De Jesus Primary Care Provider: Lonnie Vanegas ED Provider: Kishan Soliman Hospital Course Hospital Course: Chief Complaint: Cough, Wheezing HPI: Very pleasant 43-year-old woman with a prior history of Gestational DM, admitted from [facility] Emergency Department on 10/28/2018 with a diagnosis of Pneumonia. Mrs. Eubanks presented to the ED with complaints of a purulent cough over the prior 2 weeks, with a new onset of hemoptysis. Patient reported a history of a respiratory illness/influenza in April, with an intermittently ongoing cough since that time. She initially presented to the ED on October 23, with CXR showing no acute abnormalities. Given her wheezing she was treated with nebulizer therapy with improvement in her symptoms, and diagnosed with sinusitis and Tracheobronchitis and prescribed oral Doxycycline and an albuterol inhaler. Since that time however she reported worsening in her cough, one episode of night sweats, and development of blood streaks in her sputum. Although she has had no ill contacts, she did report visiting a friend recently whose sister had just completed treatment for Tuberculosis. Work-up in the ED was remarkable for leukocytosis, CT scan that was negative for PE but showed evidence of infiltrates vs. scarring in the apices, as well as pulmonary nodules. Upon specific questioning the patient denied any night sweats, weight loss, or other bouts of hemoptysis prior to her current symptoms. She was initiated on antibiotic therapy and referred for admission. This morning Mrs. Eubanks reports vast improvement in her symptoms. Although she continues to cough, it is reportedly improved and with no further hemoptysis. Her wheezing has improved as well.. Her leukocytosis has improved and likely related to IV Steroids, and she has remained afebrile. Sputum culture was not revealing. Sputum AFB, Quantiferon Gold, M. Pneumoniae, and Legionella are still pending, but her PPD test was officially interpreted as negative this morning. She also had a Rheum panel, including PARKER, Anti-ds DNA, and ANCA ordered by the admission attending - still pending at time of discharge. No overnight were reported. She remains afebrile. Hospital Course: (1) Pulmonary infiltrate: Potential for pneumonia by symptoms, including fevers and hemoptysis. Patient appears vastly improved on her current antibiotic and steroid therapy. - Continue antibiotics but change to Cefpodoxime and oral Azithromycin. - Await culture results, including Legionella, M. Pneumoniae, AFB, Quantiferon Gold, and rheum panel - follow-up as outpatient. - Given pulmonary nodule PPD was checked and negative. Awaiting AFB & Quantiferon Gold test as above. - Also with PARKER, ANCA, Legionella ordered at admission and pending at this time. - Plan on slow prednisone taper - ensure patient also has inhaler therapy at home. - Leukocytosis likely on the basis of concurrent IV Steroid use - improved. Will repeat labs as outpatient. (2) Lung nodules: Will need follow-up imaging in 3-6 months, with further evaluation pending results. Also consider Pulmonary follow-up if patient's symptoms do not resolve or worsen. (3) Hemoptysis: As above. No further episodes. Home Meds and New Rx's Prescriptions: New codeine-guaifenesin [Guaifenesin AC] 10-100 mg/5 mL liquid 5 ml PO Q4H PRN (Reason: cough) Qty: 118 RF: 0 cefpodoxime 200 mg tablet 200 mg PO BID Qty: 10 RF: 0 azithromycin 250 mg tablet 250 mg PO DAILY 5 Days Qty: 3 RF: 0 prednisone 10 mg tablet 10 mg PO DAILY Qty: 45 RF: 0 Continued CENTRUM TABLET 1 EACH tablet 1 tab PO DAILY RF: 0 Probiotic 1 EACH capsule 1 ea PO DAILY RF: 0 albuterol sulfate 90 mcg/actuation HFA aerosol inhaler 1 inh IH Q4H PRN (Reason: shortness of breath or wheezing) Qty: 8.5 RF: 0 Discontinued doxycycline hyclate 100 mg tablet 100 mg PO BID Qty: 19 RF: 0 Discharge Instructions Activity:: No strenuous activity Equipment/Supplies:: No Equipment Needed Diet:: As Tolerated Discharge Orders Discharge Orders: Discharge Order (Routine); Ordered 10/31/18 Ordered By: Marcio Isaacs Exam Narrative Exam Narrative: General: Patient appears comfortable, AAOX3, NAD Neck: Supple CV: Regular, nontachycardic, S1S2, No rubs, murmurs, or gallops. Pulmonary: Minimal wheezing with good air entry - vastly improved breath sounds. Abdomen: + Bowel Sounds, soft, nontender, nondistended Vascular: No lower extremity edema Psych: Normal mood and affect. DS: Data Vitals/I&O Vitals and I&O: Vital Signs Temperature 36.5 C 10/31/18 07:55 Temperature Source Tympanic 10/31/18 07:55 Pulse 78 10/31/18 07:55 Pulse Rhythm Regular 10/31/18 09:41 Respiratory Rate 18 10/31/18 07:55 Respiratory Effort 10/31/18 09:41 Respiratory Depth Normal 10/31/18 09:41 Respiratory Pattern Normal 10/31/18 09:41 Blood Pressure 124/85 10/31/18 09:15 Blood Pressure Mean 80 10/28/18 16:32 Blood Pressure Position Sitting 10/28/18 15:44 Pulse Oximetry 96 10/31/18 07:55 Oxygen Delivery Method Room Air 10/31/18 07:55 Oxygen Flow Rate 0 10/31/18 07:55 Pain Level 0 10/31/18 07:55 Comment 10/30/18 18:48 Intake & Output 10/30/18 10/31/18 10/31/18 23:59 11:59 23:59 Intake Total 60 / 560 250 / 250 Balance 60 / 560 250 / 250 Weight 67.2 kg Intake: IV 60 / 60 Oral 250 / 250 Other: Urine Color Pale Yellow Urine Appearance Clear Urine Odor None Comment Urine not seen, voiding independently. void x 2 in toilet during noc and incontinent with coughing also Voiding Methods Toilet Toilet Incontinent Completed studies during hospitalization [Text1]: EXAM: CT Angiography Chest With Contrast EXAM DATE/TIME: 10/28/2018 4:10 PM CLINICAL HISTORY: 43 years old, female; Patient HX: Cough for 2 weeks, hemoptysis TECHNIQUE: Imaging protocol: Computed tomographic angiography of the chest with intravenous contrast. 3D rendering: MIP reconstructed images were created and reviewed. COMPARISON: CR XR CHEST 2V PA LATERAL 10/23/2018 12:42 PM FINDINGS: Pulmonary arteries: Normal. No pulmonary emboli. Aorta: Unremarkable. No aortic aneurysm. No aortic dissection. Lungs: Infiltrate versus scarring at the pulmonary apices. 1 cm nodule in the left apex (4/10). 1.4 cm nodule in the left apex (4/8). 1 cm nodule in the lateral segment of the left lower lobe (4/57). Scattered pleural tags in the left upper lobe. Pleural space: See Lungs Finding. Heart: Unremarkable. No cardiomegaly. No pericardial effusion. Lymph nodes: Unremarkable. No enlarged lymph nodes. Bones/joints: Unremarkable. No acute fracture. Soft tissues: Unremarkable. IMPRESSION: 1. No pulmonary embolism. 2. Infiltrate versus scarring the pulmonary apices. 3. Pulmonary nodules.For patients at low risk (minimal or absent history of smoking and of other known risk factors), recommend CT at 3-6 months, then consider CT at 18-24 months. For patients at high risk (history of smoking or of other known risk factors), recommend CT at 3-6 months, then CT at 18-24 months. (Jimena et al., Fleischner Society, 2017) Labs on day of discharge: Labs from last 24 hours 10/31/18 10/31/18 06:00 06:00 WBC 23.18 H RBC 4.57 Hgb 13.9 Hct 41.3 MCV 90.4 MCH 30.4 MCHC 33.7 RDW 14.1 Plt Count 406 H MPV 9.6 Immature Gran % 0.9 Neutrophils % 88.0 Lymphocytes % 8.2 Monocytes % 2.8 Eosinophils % 0.0 Basophils % 0.1 Absolute Neutrophils 20.40 H Absolute Lymphocytes 1.90 Absolute Monocytes 0.65 Absolute Eosinophils 0.00 Absolute Basophils 0.02 Differential Comment Agrees w/ instrument RBC Morphology Normal Sodium 140 Potassium 4.5 Chloride 106 Carbon Dioxide 21.8 Anion Gap 12.2 H BUN 15 Creatinine 0.86 Estimated GFR/1.73 m2 >= 60.00 Glucose 130 H Calcium 8.3 L Magnesium 2.4 Preliminary micro results at discharge 10/29/18 09:02 Sputum Culture - Preliminary Sputum Normal Rosemary [facility] Medical History Allergic rhinitis (Acute) Family history of diabetes mellitus in first degree relative (Acute) Both parents. Family history of myocardial infarction (Acute) MA in mother in mid 50s History of gestational diabetes (Acute) PCOS (polycystic ovarian syndrome) Surgical History Arthroplasty of knee 04/15/16 [facility]-LEFT KNEE WITH ACL Biopsy of breast benign section Family History Sister Polycystic ovaries Hypertension Mother Hypertensive disorder, systemic arterial Diabetes Hyperlipidemia Stroke Father Diabetes Hyperlipidemia Hypertension Brother , 14 No problems noted. Sister No problems noted. Maternal Grandfather , 45 Alcohol abuse Paternal Grandfather , 60 Diabetes Maternal Grandmother , 85 Heart disease Hyperlipidemia Paternal Grandmother No problems noted. Son No problems noted. Daughter No problems noted. Social History Smoking/Tobacco Use Status: Never Alcohol Intake: current Alcohol Intake frequency: a few times a week Alcohol type: hard liquor Drug use: Socially Substance use type: marijuana Caregiver/Support person: No Household members: spouse and children Housing: house Communication Needs: None Do you need help understanding health information?: Never Pets and animals: No Sexually active: Yes Do you think of yourself as: straight/heterosexual Current gender identity: female What is your relationship status?: How often do you talk on the phone with friends or family?: three or more times per week How often do you get together with friends or relatives?: twice per week How often do you attend yazdanism or gnosticism services?: decline to answer Do you belong to any clubs or organized social groups?: yes Panel score (0-1 are the most socially isolated patients): 3 What type of physical activity do you participate in: other Duration: < 15 minutes/day Frequency: 1-2 times per week Dennise/Christian: None Special dennise needs: No Seatbelt use: always Helmet use: Yes Helmet use: always Drive intox or ride w/intox 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
--- NOTE | 2018-10-31 15:32 | PDOC.CMDIS ---
LACE Index Scoring Tool - Questions: Length of Stay (in days): 3 Acuity (Admit via E.D.?): Yes E.D. Visits: 3 - Answers: Total Score: 9 Risk of Readmission: Low Risk Care Management Discharge Reason for Hospitalization: Bronchitis R/O TB Discharge Plan: Deya will be discharged when medically ready per MD. No additional services required at this time. She will transport via private vehicle with family. Patient/Family Education Needs: Review of discharge instructions, discuss Ask Me Three.
[2018-11-01 10:44] LABS: dsDNA Ab, IgG <12.3 IU/mL (<30)
[2018-11-01 13:07] LABS: Streptococcus Pneumoniae Ag, U Negative (Negative)
[2018-11-01 14:22] LABS: ANA Interpretation Positive (NEGAT); ANA Titer Pattern SEE COMMENTS; ANCA Interpretation Negative (NEGAT); Glomerular Basement Membr Ab <0.2 U
[2018-11-01 21:21] LABS: Mycoplasma Pneumoniae PCR Negative; Specimen source sputum
[2018-11-02 13:29] LABS: TB Interpretation Indeterminate (NEGAT)
[2018-11-21 12:04] LABS: ANCA Pattern 1 Not Tested
== END 2018-10-31 14:00 | disposition home or self-care (01) | DRG 204 ==
LOC: ER 19:06 → MS 19:30
PROVIDERS: Admitting Provider Internal Medicine; Emergency Provider Student in an Organized Health Care Education/Training Program; PCP Family Medicine; Visit Provider Internal Medicine
DX: R91.8 Other nonspecific abnormal finding of lung field (principal); R04.2 Hemoptysis; Z20.1 Contact with and (suspected) exposure to tuberculosis
CPT/HCPCS: 36415; 71275; 80048; 80053; 81025; 86255; 87116; 87206; 87449; 93005; 94640; 96361; 96365; 96367; 99220; 99232; 99239; 99285; 81003; 83520; 83605; 83735; 83880; 84484; 85025; 85610; 85730; 86038; 86225; 86480; 87070; 87205; 87450; 87581; 93010; 99223; J0696; J2930; J3490; J7620; J7626

== ENCOUNTER 2018-11-10 14:35 | Outpatient (CLI) | payer BC, SELFPAY ==
[2018-11-14 14:55] LABS: TB Interpretation Negative (NEGAT); TB1 Ag minus Nil 0.01 IU/mL
== END 2018-11-10 14:55 ==
PROVIDERS: PCP Family Medicine; Visit Provider Family Medicine
DX: J98.4 Other disorders of lung (principal); Z11.1 Encounter for screening for respiratory tuberculosis
CPT/HCPCS: 36415; 86480

== ENCOUNTER 2018-11-16 02:39 | Outpatient (CLI) | payer BC, SELFPAY ==
--- NOTE | 2018-11-16 | PFT_ITS ---
PULMONARY FUNCTION TEST REPORT Patient - Deya Eubanks DATE OF SERVICE November 16, 2018 REQUESTING PROVIDER Lonnie Vanegas M.D. INTERPRETATION OF STUDY Spirometry shows no evidence of obstructive airways disease. No bronchodilator response. LUNG VOLUMES - Lung volumes show no evidence of restriction. DIFFUSION CAPACITY- Elevated. AIRWAY RESISTANCE - Normal. IMPRESSION Isolated elevated diffusion capacity. This constellation of finding can be seen in asthma, therefore if the diagnosis of asthma is in question proceeding with Methacholine challenge testing may prove to be useful. Clinical correlation recommended. Karely Bernabe M.D. BETHANY/ T- 11/17/2018
[2018-11-16] MEDS: Inhaler, Assist Device 1 EACH MC (16:22)
[2018-11-16] MEDS: Albuterol HFA 18 GM 200 PUFF INH IH (16:23)
== END 2018-11-16 02:59 ==
PROVIDERS: PCP Family Medicine; Visit Provider Family Medicine
DX: J44.9 Chronic obstructive pulmonary disease, unspecified (principal); J45.909 Unspecified asthma, uncomplicated

== ENCOUNTER 2022-01-16 11:51 | Outpatient (REF) | payer BC, SELFPAY ==
--- NOTE | 2022-01-16 11:20 | PAPFT_PTH ---
PATIENT: Deya Eubanks LOC: [facility] U#:[id number] AGE/SX: 47/F ROOM: RE01/16/[address]: Kateryna Bowling : 1975 BED: DIS: 01/16/2022 SPEC #: [id number] RECD: 01/16/22 13:24 STATUS: ALTAF REQ #: [id number] RU: 01/16/22 11:[address]: Kateryna Bowling DEPT: [facility] Cytology RECD BY: Elvia Almendarez ENTERED: 01/16/22 13:24 SP TYPE: PAPFT OTHR DR: Jessica Hernandez Tissues: 1 - CX/ENDOCX FOR PAP SMEARS Procedures: PAP THIN PREP/[facility] Screening HPV DNA PROBE Comments: [id number]
== END 2022-01-16 11:52 | disposition home or self-care (01) ==
LOC: LBN 11:51
PROVIDERS: PCP Family Medicine; Visit Provider Obstetrics & Gynecology Gynecology
DX: Z12.4 Encounter for screening for malignant neoplasm of cervix (principal); Z11.51 Encounter for screening for human papillomavirus (HPV)
CPT/HCPCS: 88142; 87624

== ENCOUNTER → 2022-02-11 00:59 | Outpatient (CLI) | payer BC, SELFPAY ==
--- NOTE | 2022-02-11 15:45 | DI.MAMMO_ITS ---
Exam(s) MAMMO SCREENING EXAM: MAMMO SCREENING CLINICAL HISTORY: screening TECHNIQUE: Bilateral full field digital CC and MLO mammographic images were obtained with 3D tomosyn thesis and utilizing computer aided detection (CAD). COMPARISON: None. FINDINGS: Masses/Architectural Distortion: There is a partially obscured nodule in the posterior superior left breast on the MLO view. Microcalcifications: No suspicious pleomorphic-type are seen. Skin Thickening/Nipple Retraction: None. IMPRESSION: 1. There is a partially obscured nodule in the superior posterior left breast on the MLO view. 2. Spot compression views requested for further evaluation. Ultrasound may be indicated at that time . BI-RADS Category 0 - Assessment Incomplete: Need additional imaging evaluation Breast Density - Category B - Scattered areas of fibroglandular density Breast density category C or D implies that the patient has dense breast tissue. Dense breast tissue is very common and is not abnormal but dense breast tissue can make it harder to find cancer on a ma mmogram. Also, dense breast tissue may increase their breast cancer risk. This information about the result of the mammogram report was provided to the patient to raise their awareness. Use this report when you speak with the patient about their risks for breast cancer, which includes their family hist ory. At that time, you may recommend for more screening tests (Ultrasound or MRI) as they might be us eful based on their risk. A negative radiographic report should not delay biopsy if a dominant or clinically suspicious mass is present. Up to ten percent of cancers are not identified on mammography. A negative report may reinforce clinical impression. Adenosis and dense breasts may obscure an underlying neoplasm. False positive reports average 6 to 10%. Patient will receive a letter notifying them of these results.
== END ==
PROVIDERS: PCP Family Medicine; Visit Provider Obstetrics & Gynecology
DX: Z12.31 Encounter for screening mammogram for malignant neoplasm of breast (principal); R92.8 Other abnormal and inconclusive findings on diagnostic imaging of breast
CPT/HCPCS: 77063; 77067

== ENCOUNTER → 2022-02-26 01:04 | Outpatient (CLI) | payer BC, SELFPAY ==
--- NOTE | 2022-02-26 | DI.US_ITS ---
Exam(s) MG MAMMO SCREEN CALL BACK UNI US BREAST LT COMPLETE EXAM: MG MAMMO SCREEN CALL BACK UNI -LEFT AND COMPLETE LEFT BREAST ULTRASOUND CLINICAL HISTORY: FU MAMMO, PARTIALLY OBSCURED NODULE. TECHNIQUE: Unilateral spot mammographic images obtained with 3D tomosynthesisand utilizing computer aided detection (CAD). . Complete LEFT breast Ultrasound was also performed, including all 4 quadrants, the retroareolar regio n, and the ipsilateral axilla. COMPARISON: Prior mammograms were reviewed. This additional imaging was performed due to findings described on the recent screening mammogram of 02/11/2022. prior 2012 mammogram was reviewed FINDINGS: DIAGNOSTIC LEFT BREAST MAMMOGRAM: Additional mammographic views performed todaydoes not completely dissipate the nodule but this additi onal 3D spot view mentions nodule of the appearance probable benign intramammary lymph node. This nodule, however, does appear more evident than on the 2012 mammogram COMPLETE LEFT BREAST ULTRASOUND: Ultrasound performed today reveals no evidence of solid or significant cystic lesions in all 4 quadra nts.. Scanning of the ipsilateral axilla reveals no significant adenopathy. IMPRESSION: 1. Mammographic appearance of the left breast nodule described on the mammogram of 02/11/2022. 2. Negative complete left breast ultrasound. Appropriate follow-up is repeat left breast mammogram in 6 months The patient was informed of these findings and recommendations prior to leaving the department today. BI-RADS Category 3 - 6 month - Probably Benign Finding: Recommend follow-up mammography in 6 months Breast Density - Category B - Scattered areas of fibroglandular density Breast density Category C or D implies that the patient has dense breast tissue. Dense breast tissue can make it harder to find cancer on a mammogram. Dense breast tissue is also associated with an incr eased risk of breast cancer. This information about the result of the mammogram report was provided to the patient to raise their awareness. Use this report when you speak with the patient about their risks for breast cancer, which includes their family history. At that time, you may recommend additional screening tests (Ultrasoun d or MRI) as these tests may add significant information. A negative radiographic report should not delay biopsy if a dominant or clinically suspicious mass is present. Up to ten percent of cancers are not identified on mammography. A negative report may reinforce clinical impression. Adenosis and dense breasts may obscure an underlying neoplasm. False positive reports average 6 to 10%. Patient will receive a letter notifying them of these results.
== END ==
PROVIDERS: PCP Family Medicine; Visit Provider Obstetrics & Gynecology
DX: Z12.31 Encounter for screening mammogram for malignant neoplasm of breast (principal); R92.8 Other abnormal and inconclusive findings on diagnostic imaging of breast
CPT/HCPCS: 76642; 77063; 77067

== ENCOUNTER 2022-09-02 01:09 | Outpatient (CLI) | payer BC, SELFPAY ==
--- NOTE | 2022-09-02 07:45 | DI.MAMMO_ITS ---
Exam(s) MAMMO DIAGNOSTIC UNI EXAM: MAMMO DIAGNOSTIC UNI CLINICAL HISTORY: abnl mammo, R92.8, 6 mo f/u TECHNIQUE: Left cc and MLO mammogram images were performed according to the usual protocol [facility] ng computer analysis with CAD system, tomosynthesis and C-view imaging. COMPARISON: No exams were available for comparison FINDINGS: The left breast is composed of scattered fibroglandular densities, Breast Density category B. No suspicious masses or suspicious microcalcifications are seen. Previously noted nodule in the po sterior superior breast is no longer discretely visible. No skin thickening or abnormal axillary lymph nodes are seen. IMPRESSION: BI-RADS Category 1, Negative mammogram Bilateral screening mammography is recommended, due in 6 months.. Breast Density - Category B, scattered fibroglandular densities. A negative radiographic report should not delay biopsy if a dominant or clinically suspicious mass is present. Up to ten percent of cancers are not identified on mammography. A negative report may reinforce clinical impression. Adenosis and dense breasts may obscure an underlying neoplasm. False positive reports average 6 to 10%. Patient will receive a letter notifying them of these results.
== END 2022-09-02 01:29 ==
LOC: DI 01:09
PROVIDERS: PCP Family Medicine; Visit Provider Obstetrics & Gynecology
DX: R92.8 Other abnormal and inconclusive findings on diagnostic imaging of breast (principal); Z12.31 Encounter for screening mammogram for malignant neoplasm of breast
CPT/HCPCS: 77061; 77065; G0279

== ENCOUNTER 2022-10-17 14:58 | Emergency (ER) | payer BC, SELFPAY ==
[2022-10-17 15:00] VITALS: BP 136/82; PULSE 86; RESP 18; TEMP 36.7; O2SAT 98
--- NOTE | 2022-10-17 15:00 | DI.RAD_ITS ---
Exam(s) XR FINGER LT RING EXAM: XR FINGER LT RING CLINICAL HISTORY: crushed in car door. TECHNIQUE: 2D digital imaging was performed. COMPARISON: No exams were available for comparison FINDINGS: 3 views There is a soft tissue defect/possible laceration over the dorsal aspect of the 4th finger. No radio paque foreign body. No evidence of fracture or dislocation. No abnormal soft tissue calcifications. No degenerative shayla nges nor erosions. No radiographic evidence of osteomyelitis. IMPRESSION: Soft tissue findings as above. No acute osseous findings. DATA REPOSITORY: RADIATION DOSE DELIVERED:
--- NOTE | 2022-10-17 15:11 | W.ED.GENAD ---
Discharge Plan Disposition Patient Disposition: Home Condition: Good Discharge Details Clinical Impression: Crush injury to finger Primary Care Provider: Jessica Hernandez ED Provider: Cynthia Espinal Home Meds and New Rx's Prescriptions: Continued CENTRUM TABLET 1 EACH tablet 1 tab PO DAILY Probiotic 1 EACH capsule 1 ea PO DAILY albuterol sulfate 90 mcg/actuation HFA aerosol inhaler 1 inh IH Q4H PRN (Reason: shortness of breath or wheezing) Qty: 8.5 0RF Discharge Instructions Instructions: Crush Injury (ED) Additional Instructions: X-ray is reassuring here today, no acute fracture. You have an abrasion and crush injury with bruising. Please encourage rest, ice, elevation. You may use tylenol and/or ibuprofen as needed for discomfort. You may continue with splint for discomfort. If you develop signs of infection such as redness, warmth, drainage, increased pain or other new/worsening symptoms please seek care urgently once again. Please follow up with your primary care for reevaluation in 2 weeks. Have fun with chemistry! Referrals: Jessica Hernandez MD [Primary Care Provider] - Discharge Data Discharge Date/Time-TO BE ENTERED AT DEPARTURE: 10/17/22 16:20 Medical Decision Making Patient is a pleasant 47-year-old [id number] female presenting with chief complaint of left ring finger injury. She reports that this morning she suffered a crush injury in a car door. Denies any injury the time of the incident. Denies any numbness or tingling. Did suffer a break in the skin. Will need tetanus updated. On exam, patient appears nontoxic. Resting comfortably. She has ecchymosis and a very superficial abrasion over the distal tip of the left ring finger. Sensation is intact. No deep structure involvement. She is notably tender distal to the DIP joint. Will update tetanus, will obtain XR. Has had analgesics. Will have her wash wound. XR reviewed by radiologist with no acute fx or dislocation noted. Tdap updated. Wound washed/dressed. Will give splint to help with pain. Encouraged RICE. Return precautions discussed, in particular, signs of infection. Adviced f/u wtih PCP. All of her questions and concerns were addressed, she is in agreement with this plan. HPI General Date/Time Provider Initiated Documentation: 10/17/22 15:11. Limitations to Documentation: no limitations. Information obtained by: patient and RN notes reviewed. History of Present Illness 47 year old F presents to the emergency department with the chief complaint of crush injury left ring finger, described as moderate, Quality is described as aching (throbbing, especially when down), and is localized to the left and upper extremity. Patient reports no radiation. Patient started experiencing this hour(s) and it has been constant. Immobilization improves symptom(s), Movement worsens symptoms . Patient notes no other symptoms.. Patient did receive the following treatments prior to arrival, other (APAP) Related Data Home Medications Medication Instructions Recorded Confirmed Centrum Tablet 1 tab PO DAILY 05/30/12 01/16/22 Lactobacillus acidophilus 10 1 ea PO DAILY 08/21/13 01/16/22 billion cell capsule (Probiotic) albuterol sulfate 90 mcg/actuation 1 inh inhalation Q4H PRN shortness 10/31/18 01/16/22 aerosol inhaler of breath or wheezing #8.5 grams Previous Rx's Medication Instructions Recorded albuterol sulfate 90 mcg/actuation 1 inh inhalation Q4H PRN shortness 10/31/18 aerosol inhaler of breath or wheezing #8.5 grams Allergies Allergy/AdvReac Type Severity Reaction Status Date / Time No Known Drug Allergies Allergy Verified 01/01/22 17:23 General Stated Complaint: Orthopedic AGNES: 4 Review of Systems Constitutional Constitutional: Reports as per HPI Cardiovascular Cardiovascular: Reports as per HPI Musculoskeletal Musculoskeletal: Reports as per HPI and Denies tingling Integumentary/Breasts Skin/Breast: Reports as per HPI and Denies rash Neurologic Neurologic: Reports as per HPI, Denies tingling and Denies paresthesias PFSH All Active Problems (Updated 10/17/22 @ 15:58 by NICK Jacobo) Crush injury to finger (Acute) Abnormal mammogram (Acute) Otitis media (Acute) Abscess (Acute) Chronic ethmoiditis (Acute) Chronic maxillary sinusitis (Acute) Allergic rhinitis due to food (Acute) Allergic reaction (Acute) Dermatitis due to ingested food (Acute) Sinusitis (Acute) Apical lung scarring (Acute) DVT prophylaxis (Acute) Pulmonary infiltrate (Acute) Lung nodules (Acute) Hemoptysis (Acute) Acute purulent bronchitis (Acute) Allergic rhinitis (Acute) History of gestational diabetes (Acute) Family history of diabetes mellitus in first degree relative (Acute) Both parents. Family history of myocardial infarction (Acute) IA in mother in mid 50s Excessive and frequent menstruation (Acute 08/21/13) Right upper quadrant abdominal pain (Acute) Gestational diabetes mellitus (Acute 08/29/12) Migraine with aura (Acute 10/12/13) Rib pain on right side (Acute 12/30/16) Sprain of anterior cruciate ligament of left knee, subsequent encounter (Acute 04/09/16) [facility] Uterine leiomyoma (Acute 12/30/16) Medical History PCOS (polycystic ovarian syndrome) Surgical History Arthroplasty of knee 04/15/16 [facility]-LEFT KNEE WITH ACL Biopsy of breast benign section Family History Sister Polycystic ovaries Hypertension Mother Hypertensive disorder, systemic arterial Diabetes Hyperlipidemia Stroke Father Diabetes Hyperlipidemia Hypertension Brother , 14 No problems noted. Sister No problems noted. Maternal Grandfather , 45 Alcohol abuse Paternal Grandfather , 60 Diabetes Maternal Grandmother , 85 Heart disease Hyperlipidemia Paternal Grandmother No problems noted. Son No problems noted. Daughter No problems noted. Social History Smoking/Tobacco Use Status: Never Smoking risk assessment performed?: Yes Alcohol Intake: current Alcohol Intake frequency: a few times a week Alcohol type: hard liquor Drug use: Socially Substance use type: marijuana Caregiver/Support person: No Household members: spouse and children Housing: house Communication Needs: None Do you need help understanding health information?: Never Pets and animals: No Sexually active: Yes Do you think of yourself as: straight/heterosexual Current gender identity: female What is your relationship status?: How often do you talk on the phone with friends or family?: three or more times per week How often do you get together with friends or relatives?: twice per week How often do you attend nondenominational or muslim services?: decline to answer Do you belong to any clubs or organized social groups?: yes Panel score (0-1 are the most socially isolated patients): 3 What type of physical activity do you participate in: other Duration: < 15 minutes/day Frequency: 1-2 times per week Dennise/Tenriism: None Special dennise needs: No Seatbelt use: always Helmet use: Yes Helmet use: always Drive intox or ride w/intox driver engineer: No Do you feel safe at home: Yes Do you feel safe in your relationship?: Yes History History 2 Para Hx # Term Pregnancies 2 Multiple births Hx # Pregnancies Ectopic pregnancies AB induced Hx Number of Living Children 2 AB spontaneous Exam Const General: cooperative, healthy appearing, comfortable, no acute distress, well developed and well groomed Nutritional Appearance: average body habitus and well nourished Orientation: alert and awake Resp Effort & Inspection: normal respiratory effort, able to speak in complete sentences and no respiratory distress Cardio Rate: regular rate Rhythm: regular rhythm Skin Trauma: abrasion (superifical abrasion distal left ring finger palmar side, no deep injury) and other (wound irregular shape) Neuro General: patient alert and patient awake Cognition: normal cognition Speech: speech normal Gait: normal gait Motor: muscle tone normal throughout Sensory Exam: no sensory deficits noted Extrem Hand/finger images: 1. Irregular superficial abrasion. No FB noted, no deep structure involvement. Sensatio intact distal to the injury. While painful, patient able to flex/extend at the DIP joint. Intact capillary refill. Ecchymosis on nail side along the ulnar side, ecchymosis on palmar side as well. No signficant swelling at this time. Remaining exam of finger normal. 2+ distal pulses. Course Vital Signs Vital signs: Vital Signs Temperature 36.7 C 10/17/22 15:00 Pulse 86 10/17/22 15:00 Respiratory Rate 18 10/17/22 15:00 Blood Pressure 136/82 10/17/22 15:00 Pulse Oximetry 98 10/17/22 15:00 Temperature 36.7 C 10/17/22 15:00 Temperature Source Oral 10/17/22 15:00 Pulse 86 10/17/22 15:00 Respiratory Rate 18 10/17/22 15:00 Respiratory Effort Normal, Non-Labored 10/17/22 15:06 Blood Pressure 136/82 10/17/22 15:00 Blood Pressure Position Sitting 10/17/22 15:00 Pulse Oximetry 98 10/17/22 15:00 Oxygen Delivery Method Room Air 10/17/22 15:00 Oxygen Flow Rate 0 10/17/22 15:00
--- NOTE | 2022-10-17 15:40 | DI.VRAD_ITS ---
PROCEDURE INFORMATION: Exam: XR Left Finger(s) Exam date and time: 10/17/2022 3:29 PM Age: 47 years old Clinical indication: Other: Crushed in car door TECHNIQUE: Imaging protocol: Radiologic exam of the left fingers. Views: Minimum 2 views. COMPARISON: US LEFT EXTREMITY ULTRASOUND 08/02/2016 14:35 FINDINGS: Bones/joints: No fracture or dislocation. Normal bone mineralization. Soft tissues: Soft tissue swelling of the base of the 4th and 5th proximal fingers. IMPRESSION: 1. No evidence for acute bony injury. If clinical symptoms persist recommend followup film in 7-10 days. 2. Soft tissue swelling of the base of the 4th and 5th proximal fingers. Dictated and Authenticated by: Karlene Castellano MD. Ordering:STACI Marie MD
== END 2022-10-17 16:20 | disposition home or self-care (01) ==
PROVIDERS: Emergency Provider Physician Assistant; PCP Family Medicine
DX: S67.195A Crushing injury of left ring finger, initial encounter (principal); V48.4XXA Person boarding or alighting a car injured in noncollision transport accident, initial encounter; Y93.89 Activity, other specified; Y92.9 Unspecified place or not applicable; Y99.9 Unspecified external cause status
CPT/HCPCS: 29130; 90472; 99283; 73140; 99282

== ENCOUNTER 2022-12-09 17:46 | Outpatient (REF) | payer BC, SELFPAY ==
[2022-12-09 21:22] LABS: Bilirubin Negative (Negative); Blood Moderate (Negative); Clarity Clear (Clear); Glucose Negative (Negative); Ketones Negative (Negative); Leukocyte Esterase Moderate (Negative); Nitrite Negative (Negative); Urobilinogen 0.2 mg/dL (Up to 0.2)
[2022-12-09 21:30] LABS: Bacteria Few HPF (Negative); C & S Indicated? Yes; Crystals Negative HPF (Negative); Epithelial Cells Rare HPF (Negative); Mucus Negative (Negative)
== END 2022-12-09 17:47 | disposition home or self-care (01) ==
LOC: LBN 17:46
PROVIDERS: PCP Family Medicine; Visit Provider Physician Assistant
DX: R39.9 Unspecified symptoms and signs involving the genitourinary system (principal)
CPT/HCPCS: 87077; 81003; 81015; 87086; 87186

== ENCOUNTER 2022-12-17 19:11 | Outpatient (REF) | payer BC, SELFPAY ==
[2022-12-17 21:05] LABS: Bilirubin Negative (Negative); Blood Trace-intact (Negative); Clarity Clear (Clear); Glucose Negative (Negative); Ketones Negative (Negative); Leukocyte Esterase Moderate (Negative); Nitrite Negative (Negative); Urobilinogen 0.2 mg/dL (Up to 0.2); pH 5.5 (5-8)
[2022-12-17 21:13] LABS: Bacteria Few HPF (Negative); C & S Indicated? Yes; Crystals Negative HPF (Negative); Epithelial Cells Rare HPF (Negative); Mucus Trace (Negative); RBC 0-2 HPF (0-2)
== END 2022-12-17 19:12 | disposition home or self-care (01) ==
LOC: LBN 19:11
PROVIDERS: PCP Family Medicine; Visit Provider Nurse Practitioner Family
DX: R39.9 Unspecified symptoms and signs involving the genitourinary system (principal)
CPT/HCPCS: 87077; 81003; 81015; 87086; 87186

== ENCOUNTER → 2023-02-17 01:18 | Outpatient (CLI) | payer BC, SELFPAY | PROVIDERS: PCP Family Medicine; Visit Provider Obstetrics & Gynecology | DX: Z12.31 Encounter for screening mammogram for malignant neoplasm of breast (principal) | CPT/HCPCS: 77063; 77067 ==

== ENCOUNTER 2023-06-01 04:58 | Outpatient (CLI) | payer BC, SELFPAY ==
[2023-06-01 16:03] LABS: HCT 41.8 % (36.0-46.0); MCH 29.5 pg (27.0-33.0); MCHC 33.5 % (32.0-36.0); MCV 88 fL (80-95); Platelet Count 336 10^3/uL (130-400); RBC 4.75 10^6/uL (3.93-5.22); RDW 13.6 % (11.7-14.6); RDW-SD 44.1 fL; WBC 11.23 10^3/uL (4.4-10.8)
[2023-06-01 16:26] LABS: Hemoglobin A1C 5.8 % (<5.7)
[2023-06-01 17:21] LABS: ALT 42 U/L (14-59); AST 24 U/L (15-37); Albumin 3.5 g/dL (3.4-5.0); Alkaline Phosphatase 66 U/L (46-116); Anion Gap 12.4 mmol/L (3-11); BUN 11 mg/dL (7-18); Bilirubin, Total 0.2 mg/dL (0.2-1.0); CO2 26.6 mmol/L (21.0-32.0); CREATININE 0.8 mg/dL (0.55-1.02); Calcium 8.9 mg/dL (8.5-10.1); Calculated LDL 111 mg/dL (<100); Chloride 101 mmol/L (98-107); Cholesterol 189 mg/dL (<200); Estimated GFR 91.97 (mL/min/1.73m2); Glucose 90 mg/dL (74-106); HDL Cholesterol 55 mg/dL (40-60); Potassium 3.9 mmol/L (3.5-5.1); Sodium 140 mmol/L (136-145); TSH (W/Ref FT4) 2.62 uIU/mL (0.36-3.74); Total Protein 7.7 g/dL (6.4-8.2); Triglyceride 119 mg/dL (<150)
[2023-06-01 17:31] LABS: Vitamin D 25 Total 61.4 ng/mL (30-100)
== END 2023-06-01 04:59 | disposition home or self-care (01) ==
LOC: LBO 04:58
PROVIDERS: PCP Student in an Organized Health Care Education/Training Program; Referring Provider Student in an Organized Health Care Education/Training Program; Visit Provider Student in an Organized Health Care Education/Training Program
DX: Z13.220 Encounter for screening for lipoid disorders (principal); Z82.49 Family history of ischemic heart disease and other diseases of the circulatory system; O24.419 Gestational diabetes mellitus in pregnancy, unspecified control; Z83.3 Family history of diabetes mellitus; R73.09 Other abnormal glucose; R79.89 Other specified abnormal findings of blood chemistry; Z86.39 Personal history of other endocrine, nutritional and metabolic disease; I10 Essential (primary) hypertension
CPT/HCPCS: 36415; 80053; 80061; 82306; 85027; 83036; 84443

== ENCOUNTER 2024-06-06 18:58 | Outpatient (CLI) | payer BC, SELFPAY ==
--- NOTE | 2024-06-06 18:45 | RT.EKG_ITS ---
APPROVED REPORT Exam: Resting ECG Reason for Exam: chest pain, palpitations Patient Location: O HR:69 bpm ECG Measurements Heart Rate 69 AXIS MS 151 P 16 QRSd 95 QRS 54 QT 395 T 12 QTc 423 Conclusion Sinus rhythm...normal P axis, V-rate 50- 99 Normal Electrocardiogram
== END 2024-06-06 18:59 | disposition home or self-care (01) ==
LOC: DI.KIM 18:59
PROVIDERS: PCP Nurse Practitioner; Visit Provider Nurse Practitioner
DX: R07.9 Chest pain, unspecified (principal); R00.2 Palpitations
CPT/HCPCS: 93010

== ENCOUNTER 2024-07-03 00:13 | Outpatient (CLI) | payer BC, SELFPAY ==
--- NOTE | 2024-07-03 06:46 | ETT_ITS ---
APPROVED REPORT Exam: Exercise Treadmill Patient Location: Out-Patient Room/Bed: Stress Nurse: Judy Maya RN Ordering Provider:JAMAL MELISSA, Contact Number: [phone] BMI: 35.14 Baseline Rhythm: Sinus Rhythm Indications: Chest pain, palpitations, family hx of heart attack, Medical History Medical History: Prediabetes, obesity, family hx of [place] Cardiac Medications: Albuterol sulfate Allergies: NKA Cardiac Risk Factors: Famioly hx, prediabetes, obesity Previous Cardiac Procedures: None Pretest Chest Pain Characteristics: None Exercise History: Indeterminate Physical Disabilities: None Lung Sounds: Clear to auscultation Heart Sounds: Regular Stress Test Details Test: Exercise stress testing was performed using a Von protocol. Rest Stress HR Resting HR Supine: 65 bpm Max Heart Rate (APMHR): 173 bpm Resting HR Standin bpm Target HR (85% APMHR): 147 bpm Max HR Achieved: 152 bpm % of APMHR: 88 Recovery HR: 81 bpm HR response to stress: Normal HR response to stress BP Resting BP Supine: 98/76 mmHg Resting BP Standin/74 mmHg Max BP: 192/82 mmHg Recovery BP: 108/70 mmHg BP response to stress: Normal blood pressure response to stress. ECG Resting ECG: Sinus Rhythm Stress ECG: Sinus Tachycardia ST Change: No significant ST segment changes noted Recovery ECG: Sinus Rhythm Recovery ST Change: No significant ST segment changes noted Comment: Patient noted to have P wave changes in recovery the returned to baseline at test end. Patie nt denied all symptoms at this time. Alia Victor NP viewed EKG. Patient left ambulatory in no appa rent distress. Clinical Reason for Termination: Target HR Achieved Stress Symptoms: Mild SOB Exercise duration: 07 min50 sec Highest Stage Reached: Stage 3: 3.4 mph at 14% grade. Exercise capacity: 9.90 METs Angina Score: None Rate Pressure Product: [id number] Stress ECG Conclusion 1. Resting electrocardiogram was normal 2. Patient exercised on the Von protocol and completed a workload of 10 METS 3. Normal heart rate and blood pressure response to exercise. The patient achieved 88% of maximal pr edicted heart rate for age 4. There was no electrocardiographic evidence of myocardial ischemia 5. There were no significant dysrhythmias Stress Test Summary STAGE Time (mins) Speed (mph) Grade (%) HR BP SpO2 SYMPTOMS METS Supine 65 98/76 97% Standing 67 102/74 1 3 1.7 10 101 120/88 4.5 2 6 2.5 12 124 7 3 9 3.4 14 154 10 1 min recovery 128 192/82 3 min recovery 79 110/64 6 min recovery 81 108/70
== END 2024-07-03 00:33 ==
LOC: DI 00:13
PROVIDERS: PCP Nurse Practitioner; Visit Provider Internal Medicine Cardiovascular Disease
DX: R07.9 Chest pain, unspecified (principal); R00.2 Palpitations; Z82.49 Family history of ischemic heart disease and other diseases of the circulatory system
CPT/HCPCS: 93017

== ENCOUNTER 2024-07-03 02:59 | Outpatient (CLI) | payer BC, SELFPAY ==
[2024-07-03 07:47] LABS: Abs Immature Grans 0.06 10^3/uL (0.0-0.06); Absolute Basophil Count 0.04 10^3/uL (0.0-0.2); Absolute Eosinophil Count 0.15 10^3/uL (0.0-0.7); Absolute Lymphocyte Count 2.49 10^3/uL (1.2-3.4); Absolute Monocyte Count 0.84 10^3/uL (0.1-0.8); Basophils % 0.4 %; Eosinophils % 1.5 %; HCT 38.5 % (36.0-46.0); HGB 12.8 g/dL (11.2-15.7); Immature Grans % 0.6 %; Lymphocytes % 24.7 %; MCH 28.6 pg (27.0-33.0); MCHC 33.2 % (32.0-36.0); MCV 86 fL (80-95); MPV 9.3 fL (8.0-11.0); Monocytes % 8.3 %; Neutrophils % 64.5 %; Platelet Count 347 10^3/uL (130-400); RBC 4.47 10^6/uL (3.93-5.22); RDW 14.5 % (11.7-14.6); RDW-SD 45.9 fL; WBC 10.08 10^3/uL (4.4-10.8)
[2024-07-03 07:58] LABS: Anion Gap 5.1 mmol/L (3-11); BUN 8 mg/dL (7-18); CO2 26.9 mmol/L (21.0-32.0); CREATININE 0.9 mg/dL (0.55-1.02); Calcium 8.8 mg/dL (8.5-10.1); Chloride 106 mmol/L (98-107); Estimated GFR 79.35 (mL/min/1.73m2); Glucose 91 mg/dL (74-106); Potassium 3.8 mmol/L (3.5-5.1); Sodium 138 mmol/L (136-145)
[2024-07-03 08:05] LABS: Hemoglobin A1C 5.7 % (<5.7)
[2024-07-03 08:12] LABS: Calculated LDL 88 mg/dL (<100); Cholesterol 145 mg/dL (<200); HDL Cholesterol 45 mg/dL (>or=50); Triglyceride 64 mg/dL (<150)
[2024-07-03 18:53] LABS: HBs Antibody, Quant <3.1 mIU/mL (See Note); Hepatitis B Surface Ab Negative (See Note)
== END 2024-07-03 03:00 | disposition home or self-care (01) ==
LOC: LBO 03:02
PROVIDERS: Student in an Organized Health Care Education/Training Program; PCP Nurse Practitioner; Visit Provider Internal Medicine Cardiovascular Disease
DX: I10 Essential (primary) hypertension (principal); R73.09 Other abnormal glucose; Z13.220 Encounter for screening for lipoid disorders; D72.829 Elevated white blood cell count, unspecified; Z01.84 Encounter for antibody response examination
CPT/HCPCS: 36415; 80048; 80061; 86706; 83036; 85025

== ENCOUNTER 2024-07-03 08:41 | Outpatient (RCR) | payer BC, SELFPAY ==
--- NOTE | 2024-07-11 08:35 | W.HOLTRPT ---
Date of service: 07/11/24 Time of Service: 08:35 Holter Monitor Report Referring Provider:: Paris Harrington Indications:: Palpitations Holter Monitor Note: This is a 48-hour Holter monitor. Rhythm throughout was sinus with an average heart rate of 69. Minimum was 48, maximum 112. There were no ventricular dysrhythmias. A total of 5 premature atrial contractions were recorded. There was no atrial fibrillation, no SVT, no high-grade AV block, no pauses greater than 3 seconds. Symptoms were reported all of which correlated to sinus rhythm
== END 2024-07-29 23:59 | disposition home or self-care (01) ==
LOC: CARDOPNVT 08:41
PROVIDERS: PCP Nurse Practitioner; Visit Provider Internal Medicine Cardiovascular Disease
DX: R00.2 Palpitations (principal); Z82.49 Family history of ischemic heart disease and other diseases of the circulatory system; I49.1 Atrial premature depolarization; Z51.89 Encounter for other specified aftercare
CPT/HCPCS: 93225; 93226

== ENCOUNTER 2024-09-20 01:10 | Outpatient (CLI) | payer BC, SELFPAY ==
--- NOTE | 2024-09-20 07:30 | DI.US_ITS ---
APPROVED REPORT EXAM: Comprehensive 2D, Doppler, and color-flow Echocardiogram Patient Location: Out-Patient Hooker Laster: Cielo Hercules RDCS (AE) Indications: Chest pain, palpitations, family h/o ischemic heart disease Other Information Study Quality: Good Conclusion Normal left ventricular wall thickness and chamber size. Ejection fraction is 60%. Wall motion is normal Normal right ventricular size and function Both atria are normal in size There is no structural or hemodynamically significant valvular disease Estimated right ventricular systolic pressure is 28 mmHg Wall motion Left Ventricle The left ventricle is normal size. The left ventricular systolic function is normal. The left ventricular ejection fraction is within the normal range. There is normal left ventricular wall thickness. There is normal LV segmental wall motion. There is no ventricular septal defect visualized. LVEF is 60%. Right Ventricle The right ventricle is normal size. The right ventricular systolic function is normal. Atria The left atrium size is normal. The right atrium size is normal. The interatrial septum is intact with no evidence for an atrial septal defect. Aortic Valve The aortic valve is normal in structure. Aortic valve is trileaflet. There is no aortic valvular stenosis. No aortic regurgitation is present. Mitral Valve The mitral valve is normal in structure. No evidence of mitral valve stenosis. Trace mitral regurgitation. Tricuspid Valve The tricuspid valve is normal in structure. There is no tricuspid valve stenosis. Trace tricuspid regurgitation. The RVSP is 27.6 mmHg. Pulmonic Valve The pulmonary valve is normal in structure. There is no pulmonic valvular stenosis. There is no pulmonic valvular regurgitation. Great Vessels The aortic root is normal in size. The ascending aorta is normal in size. Aortic arch is normal in caliber. IVC is normal in size and collapses >50% with inspiration. Pericardium There is no pericardial effusion. 2D Dimensions IVSD d PLAX 0.84 cm F: 0.6-1.0 Ao Root d 2.75 cm F: 2.7 - 3.3 LVPW d PLAX 0.80 cm F: 0.6 - 1.0 Ao Asc Diam d 3.25 cm F: 2.3 - 3.1 LVID d PLAX 4.00 cm F: 3.8 - 5.2 LVDs 2.73 cm F: 2.2 - 3.5 LV EF Teichholz 59.6 % FS 31.22 % LV EDV (Teich) 68.9 mL LV ESV (Teich) 27.9 mL M-Mode TAPSE 1.90 cm (M/F) >1.7 Auto EF LV EDV A4C 74.9 mL LV EDV A2C 67.4 mL LV EDV BP 72.5 mL LV ESV A4C 30.9 mL LV ESV A2C 27.0 mL LV ESV BP 28.6 mL LVEF(%) A4C 58.7 % LVEF(%) A2C 60.0 % LVEF(%) BP 60.5 % LV SV A4C 44.0 ml LV SV A2C 40.4 ml LV SV BP 43.9 ml LV CO A4C 2.8 L/min LV CO A2C 2.5 L/min LV CO BP 2.6 L/min HR A4C 62.72 BPM HR A2C 62.72 BPM LV EDV Index (BP) LA Volume LA Length A4C 4.3 cm LA Length A2C 4.3 cm LA Area A4C s 11.50 cm2 LA Area A2C s 10.68 cm2 LA Vol A4C A-L 26.32 mL LA Vol A2C A-L 22.33 mL LA Vol Biplane A-L 24.5 mL LA Vol/BSA A4C A-L LA Vol/BSA A2C A-L LA Vol/BSA BP A-L 14.4 mL/m2 LA Vol A4C MOD 24.4 mL LA Vol A2C MOD 20.8 mL LA Vol BP MOD 22.7 mL RA Volume RA Area A4C 7.0 cm2 RA ESV A4C (A-L) 12.1mL RA Vol/BSA A4C A-L RA Length A4C 3.5 cm RA ESV A4C (MOD) 11.1mL LV Diastology MV E' medial 0.092 (>0.07 m/s) MV E Vmax 0.78 (0.4-1.3 m/s) MV E/E' MED 8.54 (<14) MV A Vmax 0.65 (0.4-1.3 m/s) MV E' lateral 0.103 (>0.1 m/s) E/A Ratio 1.2 MV E/E' LAT 7.65 (<14) MV E' Average 0.097 m/s MV E/E'(average) 8.07 Aortic Valve AoV Vmax 1.09 m/s LVOT Vmax 1.18 m/s AoV Peak Grad 4.7 mmHg LVOT Peak Grad 5.6 mmHg AoV Area (Vmax) 3.06 cm2 LVOT VTI 0.253 m AoV VTI 0.242 m LVOT Mean Grad 2.8 mmHg AoV Mean Sawyer. 0.80 m/s LVOT SV 71.31 mL AoV Mean Grad 2.8 mmHg LVOT Diam s 1.85 cm AoV Area (VTI) 2.94 cm2 AV Regurg Peak Gr. 4.72 mmHg Velocity Ratio 1.08 Mitral Valve MV DT 179 (160-240 msec) MV Vmax TIPS 0.77 m/s MV Mean Grad 1.1 (<2mmHg) MV VTI 0.238 m Pulmonary Valve PV Vmax 0.85 (0.5-1.5 m/s) PV Peak Grad 2.9 mmHg PV Mean Sawyer 0.65 m/s PV Mean Grad 1.9 mmHg Tricuspid Valve RA Pressure 3.00 mmHg TR Vmax 2.48 m/s TV S' 0.13 m/s TR Peak Grad 24.5 mmHg RVSP (TR) 27.6 mmHg
== END 2024-09-20 01:30 ==
LOC: DI 01:11
PROVIDERS: PCP Nurse Practitioner; Visit Provider Internal Medicine Cardiovascular Disease
DX: R07.9 Chest pain, unspecified (principal); R00.2 Palpitations; Z82.49 Family history of ischemic heart disease and other diseases of the circulatory system
CPT/HCPCS: 93306